=== PATIENT | female | born 1955 | race Caucasian/White ===

== ENCOUNTER 2020-06-22 13:19 | Outpatient (CLI) | payer MEDICARE, SELFPAY ==
[2020-06-22 14:03] LABS: Hematocrit 39.9 % (37.0-47.0); Hemoglobin 12.9 g/dL (12.0-15.0); Mean Corpuscular HGB Conc 32.3 g/dl (32-36); Mean Corpuscular Hemoglobin 29.5 pg (26-34); Mean Corpuscular Volume 91.3 fl (80-100); Mean Platelet Volume 10.9 fl (7.4-10.4); Platelet Count Result 216 k/mm3 (150-375); Red Blood Count 4.37 M/mm3 (4.2-5.4); Red Cell Distribution Width 12.5 % (11.5-14.5); White Blood Count 9.1 K/mm3 (4.5-10.0)
[2020-06-22 14:13] LABS: Albumin Level 4.3 g/dL (3.5-5.1); Creatinine Urine 114.2 mg/dL; Total Protein Urine Random 13 mg/dL
[2020-06-22 14:17] LABS: Anion Gap 13.3 mmol/L (7-16); Blood Urea Nitrogen 31 mg/dL (7-17); Calcium 9.3 mg/dL (8.4-10.2); Carbon Dioxide 29 mmol/L (22-30); Chloride 102 mmol/L (98-107); Estimated Glomerular Filt Rate 28; Glucose 122 mg/dL (65-105); Potassium 4.3 mmol/L (3.4-5.0); Sodium 140 mmol/L (137-145)
[2020-06-22 14:19] LABS: Hemoglobin A1C 5.4 % (<5.7)
[2020-06-22 15:10] LABS: Parathyroid Intact 86.2 pg/mL (7.5-53.5)
== END 2020-06-22 13:20 | disposition home or self-care (01) ==
PROVIDERS: PCP Internal Medicine; Visit Provider Internal Medicine
DX: N18.3 Chronic kidney disease, stage 3 (moderate) (principal); E88.9 Metabolic disorder, unspecified; E63.9 Nutritional deficiency, unspecified; R79.9 Abnormal finding of blood chemistry, unspecified
CPT/HCPCS: 36415; 80048; 82040; 82306; 82570; 83036; 83970; 84156; 85027

== ENCOUNTER 2020-11-28 13:27 | Outpatient (CLI) | payer MEDICARE, SELFPAY ==
[2020-11-28 14:18] LABS: Hematocrit 38.2 % (37.0-47.0); Hemoglobin 12.3 g/dL (12.0-15.0); Mean Corpuscular HGB Conc 32.2 g/dl (32-36); Mean Corpuscular Hemoglobin 30.2 pg (26-34); Mean Corpuscular Volume 93.9 fl (80-100); Mean Platelet Volume 10.5 fl (7.4-10.4); Platelet Count Result 189 k/mm3 (150-375); Red Blood Count 4.07 M/mm3 (4.2-5.4); Red Cell Distribution Width 12.6 % (11.5-14.5); White Blood Count 7.2 K/mm3 (4.5-10.0)
[2020-11-28 14:26] LABS: Creatinine Urine 44.2 mg/dL; Total Protein Urine Random 13 mg/dL; Ur Ttl Prot Creatinine Ratio 0.29 mg/mg (0-0.20)
[2020-11-28 14:27] LABS: Albumin Level 4.1 g/dL (3.5-5.1); Anion Gap 4 mmol/L (8-16); Blood Urea Nitrogen 24 mg/dL (7-17); Calcium 9.4 mg/dL (8.4-10.2); Carbon Dioxide 34 mmol/L (22-30); Chloride 101 mmol/L (98-107); Estimated Glomerular Filt Rate 38; Glucose 105 mg/dL (65-105); Phosphorus 3.7 mg/dL (2.5-4.5); Potassium 4.1 mmol/L (3.4-5.0); Sodium 139 mmol/L (137-145)
[2020-11-28 14:27] LABS: Sodium Urine Random 72 meq/L
[2020-11-28 15:51] LABS: Vitamin D 25 Hydroxy 61.1 ng/mL
== END 2020-11-28 13:28 | disposition home or self-care (01) ==
PROVIDERS: PCP Internal Medicine; Visit Provider Internal Medicine Nephrology
DX: N18.30 Chronic kidney disease, stage 3 unspecified (principal)
CPT/HCPCS: 36415; 80069; 82306; 82570; 83970; 84156; 84300; 85027; 85999

== ENCOUNTER 2021-08-26 12:33 | Outpatient (CLI) | payer MEDICARE, SELFPAY ==
--- NOTE | ~2021-08-26 | XR_ITS ---
EXAMINATION: XR ankle LT min 3V EXAM DATE: 08/26/2021 13:31 INDICATION: Initial encounter following injury, with pain of the left ankle, fell one week ago. TECHNIQUE: Left ankle frontal, lateral and oblique projections obtained and reviewed. There is no pr ior study for comparison. FINDINGS: There is acute transverse fracture through the left lateral malleolus, about 1.5 cm from it s tip. There is about 4 mm of distraction. Unsure whether or not this will require surgical fixation. There is overlying soft tissue swelling. IMPRESSION: Acute left lateral malleolar transverse fracture; recommend orthopedic consult. Reviewed, dictated and finalized at location A. IMPRESSION: Acute left lateral malleolar transverse fracture; recommend orthop edic consult.
--- NOTE | ~2021-08-26 | XR_ITS ---
EXAMINATION: XR ankle RT min 3V EXAM DATE: 08/26/2021 13:31 INDICATION: No known recent injury provided at this time. Pain of the ankles bilaterally. TECHNIQUE: Right ankle frontal, lateral and oblique projections obtained and reviewed. Correlation is made to contralateral ankle same date. FINDINGS: Small ossifications along the tips of the right malleoli, sequela from prior injuries. Some swelling over the lateral malleolus, and subtle lucency through the very tip of the malleolus, possi ble acute nondisplaced avulsion fracture. Some swelling overlying the lateral malleolus. IMPRESSION: 1. Possible acute nondisplaced lateral malleolar avulsion fracture. Reviewed, dictated and finalized at location A.
--- NOTE | ~2021-08-26 | XR_ITS ---
EXAMINATION: XR shoulder LT min 2V EXAM DATE: 08/26/2021 13:31 INDICATION: M25.512 - Pain in left shoulder, states injury 1.5 weeks ago. TECHNIQUE: The following left shoulder projections obtained: frontal projection with internal rotatio n, frontal projection with external rotation, Grashey, and axillary (4+ views). There is no prior st udy for comparison. FINDINGS: No evidence of left shoulder rotator cuff calcific tendinosis. There is moderate glenohum eral joint, mild acromioclavicular joint primary osteoarthritis. There are no acute fractures or disl ocations identified. There is no subcutaneous gas. The soft tissue is unremarkable. There are no radiopaque foreign bodies. IMPRESSION: 1. Left shoulder exam without acute osseous findings. 2. Osteoarthritis. Reviewed, dictated and finalized at location A.
[2021-08-26 13:18] LABS: Basophils Percent Auto 0.4 % (0.2-1.2); Eosinophils Absolute Auto 0.2 K/mm3 (0-0.3); Eosinophils Percent Auto 2.2 % (0-4.4); Hematocrit 38.3 % (37.0-47.0); Hemoglobin 12.7 g/dL (12.0-15.0); Immature Granulocyte Absolute 0.03 K/mm3 (0.00-0.031); Immature Granulocyte Percent A 0.3 % (0-0.5); Lymphocytes Absolute Auto 1.72 K/mm3 (0.9-3.2); Mean Corpuscular HGB Conc 33.2 g/dl (32-36); Mean Corpuscular Hemoglobin 30.8 pg (26-34); Mean Platelet Volume 10.8 fl (7.4-10.4); Monocytes Absolute Auto 0.8 K/mm3 (0.1-0.6); Monocytes Percent Auto 8.7 % (2.6-8.5); Neutrophils Absolute Auto 6.3 K/mm3 (1.3-6.7); Neutrophils Percent Auto 69.4 % (45.5-73.1); Platelet Count Result 237 k/mm3 (150-375); Red Blood Count 4.12 M/mm3 (4.2-5.4); Red Cell Distribution Width 12.8 % (11.5-14.5); White Blood Count 9.1 K/mm3 (4.5-10.0)
[2021-08-26 13:45] LABS: Alanine Aminotransferase 22 U/L (4-35); Albumin Level 4.6 g/dL (3.5-5.1); Alkaline Phosphatase 73 U/L (38-126); Anion Gap 11 mmol/L (8-16); Aspartate Amino Transferase 31 U/L (14-36); Blood Urea Nitrogen 33 mg/dL (7-17); Calcium 9.6 mg/dL (8.4-10.2); Carbon Dioxide 26 mmol/L (22-30); Chloride 105 mmol/L (98-107); Cholesterol 145 mg/dL (0-200); Estimated Glomerular Filt Rate 25; Glucose 113 mg/dL (65-110); HDL Direct 35 mg/dL; Potassium 4.4 mmol/L (3.4-5.0); Sodium 142 mmol/L (137-145); Triglycerides 123 mg/dL (<150)
[2021-08-26 13:47] LABS: Albumin Level 4.6 g/dL (3.5-5.1); Anion Gap 9 mmol/L (8-16); Blood Urea Nitrogen 34 mg/dL (7-17); Calcium 9.6 mg/dL (8.4-10.2); Carbon Dioxide 27 mmol/L (22-30); Chloride 105 mmol/L (98-107); Estimated Glomerular Filt Rate 26; Glucose 114 mg/dL (65-110); Magnesium 1.9 mg/dL (1.6-2.3); Phosphorus 3.4 mg/dL (2.5-4.5); Potassium 4.3 mmol/L (3.4-5.0); Sodium 141 mmol/L (137-145)
[2021-08-26 13:56] LABS: LDL Cholesterol Direct 80 mg/dL
[2021-08-26 13:58] LABS: Hemoglobin A1C 5.3 % (<5.7)
[2021-08-26 14:09] LABS: Creatinine Urine 226.7 mg/dL; Total Protein Urine Random 9 mg/dL; Ur Ttl Prot Creatinine Ratio 0.04 mg/mg (0-0.20)
[2021-08-26 14:15] LABS: MALB Creatinine Ratio 3.9 mg/g (0-30); Microalbumin Urine Random 8.9 mg/L (0-16.7)
[2021-08-26 14:51] LABS: Folic Acid > 20.0 ng/mL (2.76->20)
[2021-08-26 16:12] LABS: Free T4 Free Thyroxine 1.93 ng/mL (0.78-2.19)
== END 2021-08-26 12:34 | disposition home or self-care (01) ==
PROVIDERS: PCP Internal Medicine; Referring Provider Physician Assistant; Visit Provider Internal Medicine
DX: E11.9 Type 2 diabetes mellitus without complications (principal); R53.83 Other fatigue; E03.9 Hypothyroidism, unspecified; M25.579 Pain in unspecified ankle and joints of unspecified foot; M25.512 Pain in left shoulder; N18.32 Chronic kidney disease, stage 3b
CPT/HCPCS: 36415; 73030; 73610; 80053; 80061; 80069; 82043; 82570; 82607; 82746; 83036; 83735; 84156; 84439; 84443; 85025

== ENCOUNTER 2021-09-04 14:46 | Outpatient (CLI) | payer MEDICARE, SELFPAY | END 2021-09-04 14:47 | disposition home or self-care (01) | LOC: ANHLAB 14:53 | PROVIDERS: PCP Internal Medicine | DX: R19.4 Change in bowel habit (principal) | CPT/HCPCS: 87015; 87045; 87272; 87324; 87427 ==

== ENCOUNTER 2022-08-10 13:31 | Outpatient (CLI) | payer MEDICARE, SELFPAY ==
[2022-08-10 14:10] LABS: Hematocrit 40.5 % (37.0-47.0); Mean Corpuscular HGB Conc 32.1 g/dl (32-36); Mean Corpuscular Hemoglobin 30.2 pg (26-34); Mean Corpuscular Volume 94.2 fl (80-100); Mean Platelet Volume 10.6 fl (7.4-10.4); Platelet Count Result 198 k/mm3 (150-375); Red Cell Distribution Width 12.5 % (11.5-14.5); White Blood Count 8.4 K/mm3 (4.5-10.0)
[2022-08-10 14:18] LABS: Creatinine Urine 152.2 mg/dL
[2022-08-10 14:23] LABS: Total Protein Urine Random < 5 mg/dL
[2022-08-10 14:24] LABS: Albumin Level 4.4 g/dL (3.5-5.1); Anion Gap 13 mmol/L (8-16); Blood Urea Nitrogen 34 mg/dL (7-17); Calcium 9.6 mg/dL (8.4-10.2); Carbon Dioxide 28 mmol/L (22-30); Chloride 101 mmol/L (98-107); Estimated Glomerular Filt Rate 37; Glucose 98 mg/dL (65-110); Phosphorus 3.9 mg/dL (2.5-4.5); Potassium 4.4 mmol/L (3.4-5.0); Sodium 142 mmol/L (137-145)
[2022-08-10 14:24] LABS: Ur Ttl Prot Creatinine Ratio < 0.03 mg/mg (0-0.20)
[2022-08-10 14:34] LABS: Parathyroid Intact 35.9 pg/mL (7.5-53.5)
== END 2022-08-10 13:32 | disposition home or self-care (01) ==
PROVIDERS: PCP Internal Medicine; Visit Provider Internal Medicine Nephrology
DX: N18.32 Chronic kidney disease, stage 3b (principal)
CPT/HCPCS: 36415; 80069; 82570; 83970; 84156; 85027

== ENCOUNTER 2022-08-12 11:24 | Outpatient (CLI) | payer MEDICARE, SELFPAY ==
[2022-08-12 13:39] LABS: Total Volume 24 Hour Urine 4300 ml
[2022-08-12 13:51] LABS: Urea Nitrogen 24 Hour Urine 13.5 G/DAY (12-20)
== END 2022-08-12 11:25 | disposition home or self-care (01) ==
LOC: ANHLAB 11:25
PROVIDERS: PCP Internal Medicine; Visit Provider Internal Medicine Nephrology
DX: N18.32 Chronic kidney disease, stage 3b (principal)
CPT/HCPCS: 81050; 84540

== ENCOUNTER 2022-12-30 10:04 | Outpatient (CLI) | payer MEDICARE, SELFPAY ==
--- NOTE | 2022-12-30 11:00 | NEURO_ITS ---
Impression: Patient reports a history of numbness in digits I - III of the right hand. # Moderate right Carpal Tunnel Syndrome. # Normal needle/EMG exam. # Clinical correlation recommended. Motor Nerve Conduction Upper Extremities Median Nerve Conduction Velocity (m/sec) Terminal Latency (msec) Response Voltage(mV) Elbow-Wrist Wrist Elbow Wrist Right 50 5.9 2 2 Left Ulnar Nerve Conduction Velocity (m/sec) Terminal Latency (msec) Response Voltage(mV) Above Elbow Below Elbow Wrist Above Elbow Below Elbow Wrist Right 51 51 2.7 5 6 6 Left F-Wave Latency Median (ms) Ulnar (ms) Right 31.5 29.6 Left Sensory Nerve Conduction Upper Extremities Median Nerve Stimulation Terminal Latency (msec) Wrist/Digit Response Voltage (uV) Wrist Right 6.1/6.9 15/25 Left Ulnar Nerve Stimulation Terminal Latency (msec) Wrist/Digit Response Voltage (uV) Wrist Right 2.8 31 Left Radial Nerve Terminal Latency (msec) Response Voltage(mV) Right 1.9 29 Left Left Right Muscles Examined Fibrillation Fasciculation Scarcity Voltage Duration Left Right Left Right Left Right Left Right Left Right Deltoid Biceps X Brachioradialis Triceps X Pronator Teres X Ext Indicis X Ext Digitorum X Abd Poll Brev X 1st Dorsal Interosseus Paraspinals MTDD
== END 2022-12-30 10:05 | disposition home or self-care (01) ==
LOC: ANHNEURO 10:05
PROVIDERS: PCP Internal Medicine; Visit Provider Internal Medicine
DX: R20.0 Anesthesia of skin (principal); G56.01 Carpal tunnel syndrome, right upper limb
CPT/HCPCS: 95886; 95909

== ENCOUNTER 2023-03-01 10:39 | Outpatient (CLI) | payer MEDICARE, SELFPAY ==
[2023-03-01 11:27] LABS: Albumin Level 4.3 g/dL (3.5-5.1); Anion Gap 7 mmol/L (8-16); Blood Urea Nitrogen 26 mg/dL (7-17); Calcium 9.3 mg/dL (8.4-10.2); Carbon Dioxide 28 mmol/L (22-30); Chloride 105 mmol/L (98-107); Estimated Glomerular Filt Rate 45; Glucose 98 mg/dL (65-110); Phosphorus 3.9 mg/dL (2.5-4.5); Potassium 3.8 mmol/L (3.4-5.0); Sodium 140 mmol/L (137-145)
[2023-03-01 11:28] LABS: Hematocrit 37.2 % (37.0-47.0); Hemoglobin 12.2 g/dL (12.0-15.0); Mean Corpuscular HGB Conc 32.8 g/dl (32-36); Mean Corpuscular Volume 91.6 fl (80-100); Mean Platelet Volume 10.9 fl (7.4-10.4); Platelet Count Result 190 k/mm3 (150-375); Red Blood Count 4.06 M/mm3 (4.2-5.4); Red Cell Distribution Width 12.4 % (11.5-14.5); White Blood Count 7.8 K/mm3 (4.5-10.0)
[2023-03-01 11:31] LABS: Total Protein Urine Random 7 mg/dL; Ur Ttl Prot Creatinine Ratio 0.08 mg/mg (0-0.20)
[2023-03-01 11:38] LABS: Parathyroid Intact 69.2 pg/mL (7.5-53.5)
== END 2023-03-01 10:40 | disposition home or self-care (01) ==
PROVIDERS: PCP Internal Medicine; Visit Provider Internal Medicine Nephrology
DX: N18.32 Chronic kidney disease, stage 3b (principal)
CPT/HCPCS: 36415; 80069; 82570; 83970; 84156; 85027

== ENCOUNTER 2023-09-03 08:18 | Outpatient (CLI) | payer MEDICARE, SELFPAY ==
[2023-09-03 08:57] LABS: Hematocrit 39.7 % (37.0-47.0); Hemoglobin 12.7 g/dL (12.0-15.0); Mean Corpuscular Hemoglobin 30.2 pg (26-34); Mean Corpuscular Volume 94.3 fl (80-100); Mean Platelet Volume 10.6 fl (7.4-10.4); Platelet Count Result 178 k/mm3 (150-375); Red Blood Count 4.21 M/mm3 (4.2-5.4); Red Cell Distribution Width 12.5 % (11.5-14.5); White Blood Count 8.9 K/mm3 (4.5-10.0)
[2023-09-03 09:01] LABS: Albumin Level 4.1 g/dL (3.5-5.1); Anion Gap 7 mmol/L (8-16); Blood Urea Nitrogen 27 mg/dL (7-17); Calcium 9.1 mg/dL (8.4-10.2); Carbon Dioxide 27 mmol/L (22-30); Chloride 105 mmol/L (98-107); Estimated Glomerular Filt Rate 37; Glucose 98 mg/dL (65-110); Phosphorus 3.9 mg/dL (2.5-4.5); Potassium 3.8 mmol/L (3.4-5.0); Sodium 139 mmol/L (137-145)
[2023-09-03 09:35] LABS: Vitamin D 25 Hydroxy 70.7 ng/mL
[2023-09-03 09:38] LABS: Creatinine Urine 54.4 mg/dL; Total Protein Urine Random 12 mg/dL; Ur Ttl Prot Creatinine Ratio 0.22 mg/mg (0-0.20)
== END 2023-09-03 08:19 | disposition home or self-care (01) ==
PROVIDERS: PCP Internal Medicine; Visit Provider Internal Medicine Nephrology
DX: N18.32 Chronic kidney disease, stage 3b (principal)
CPT/HCPCS: 36415; 80069; 82306; 82570; 83970; 84156; 85027

== ENCOUNTER 2024-03-31 09:48 | Outpatient (CLI) | payer MEDICARE, SELFPAY ==
[2024-03-31 10:23] LABS: Creatinine Urine 162.2 mg/dL; Total Protein Urine Random 10 mg/dL; Ur Ttl Prot Creatinine Ratio 0.06 mg/mg (0-0.20)
[2024-03-31 10:29] LABS: Albumin Level 4.3 g/dL (3.5-5.1); Anion Gap 7 mmol/L (4-12); Blood Urea Nitrogen 28 mg/dL (7-17); Calcium 9.4 mg/dL (8.4-10.2); Carbon Dioxide 24 mmol/L (22-30); Chloride 108 mmol/L (98-107); Estimated Glomerular Filt Rate 34; Glucose 105 mg/dL (65-110); Phosphorus 3.7 mg/dL (2.5-4.5); Potassium 3.9 mmol/L (3.4-5.0); Sodium 139 mmol/L (137-145)
[2024-03-31 10:39] LABS: Hemoglobin 13.3 g/dL (12.0-15.0); Mean Corpuscular HGB Conc 32.4 g/dl (32-36); Mean Corpuscular Hemoglobin 30.2 pg (26-34); Mean Platelet Volume 10.7 fl (7.4-10.4); Platelet Count Result 208 k/mm3 (150-375); Red Blood Count 4.41 M/mm3 (4.2-5.4); Red Cell Distribution Width 12.7 % (11.5-14.5); White Blood Count 6.9 K/mm3 (4.5-10.0)
[2024-03-31 10:40] LABS: Parathyroid Intact 72.3 pg/mL (7.5-53.5)
== END 2024-03-31 09:49 | disposition home or self-care (01) ==
LOC: ANHLAB 09:51
PROVIDERS: PCP Internal Medicine; Visit Provider Internal Medicine Nephrology
DX: N18.32 Chronic kidney disease, stage 3b (principal)
CPT/HCPCS: 36415; 80069; 82570; 83970; 84156; 85027

== ENCOUNTER 2024-09-19 12:08 | Outpatient (CLI) | payer MEDICARE, SELFPAY ==
[2024-09-19 13:19] LABS: Hematocrit 42.4 % (37.0-47.0); Mean Corpuscular Hemoglobin 31.3 pg (26-34); Mean Corpuscular Volume 94.6 fl (80-100); Mean Platelet Volume 10.8 fl (7.4-10.4); Platelet Count Result 209 k/mm3 (150-375); Red Blood Count 4.48 M/mm3 (4.2-5.4); Red Cell Distribution Width 12.6 % (11.5-14.5); White Blood Count 7.2 K/mm3 (4.5-10.0)
[2024-09-19 13:49] LABS: Albumin Level 4.5 g/dL (3.5-5.1); Anion Gap 9 mmol/L (4-12); Blood Urea Nitrogen 33 mg/dL (7-17); Calcium 9.7 mg/dL (8.4-10.2); Carbon Dioxide 29 mmol/L (22-30); Chloride 102 mmol/L (98-107); Estimated Glomerular Filt Rate 32; Glucose 92 mg/dL (65-110); Phosphorus 3.7 mg/dL (2.5-4.5); Sodium 140 mmol/L (137-145)
[2024-09-19 13:59] LABS: Parathyroid Intact 42.3 pg/mL (14.5-75.2)
[2024-09-19 14:41] LABS: Creatinine Urine 111.5 mg/dL; Total Protein Urine Random 9 mg/dL; Ur Ttl Prot Creatinine Ratio 0.08 mg/mg (0-0.20)
[2024-09-19 15:47] LABS: Vitamin D 25 Hydroxy 63.7 ng/mL
== END 2024-09-19 12:09 | disposition home or self-care (01) ==
LOC: ANHLAB 12:10
PROVIDERS: PCP Internal Medicine; Visit Provider Internal Medicine Nephrology
DX: E21.1 Secondary hyperparathyroidism, not elsewhere classified (principal); I12.9 Hypertensive chronic kidney disease with stage 1 through stage 4 chronic kidney disease, or unspecified chronic kidney disease; N18.32 Chronic kidney disease, stage 3b
CPT/HCPCS: 36415; 80069; 82306; 82570; 83970; 84156; 85027

== ENCOUNTER 2025-04-05 08:54 | Outpatient (CLI) | payer MEDICARE, SELFPAY ==
--- OUTSIDE RECORDS SUMMARY | 2025-04-05 09:05 | XMS_ITS | Encounter Summary ---
Author Organization [facility] Address [address] [place] [address] Phone Care Team Providers Care Pricing Analyst Name Role Phone Cr Franklin MD Primary Care Provider [phone] Toñito Frank MD Unavailable [phone] Encounter Details Date Type Department Care Team (Latest Contact Info) Description 08/26/2021 Orders Only [facility] WGT Scanning, Provider Social History Tobacco Use Types Packs/Day Years Used Date Smoking Tobacco: Never Smokeless Tobacco: Never Alcohol Use Standard Drinks/Week Comments Yes 0 (1 standard drink = 0.6 oz pur e alcohol) rare Comments No Sex and Gender Information Value Date Recorded Sex Assigned at Not on file 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 Gender Identity Not on file Sexual Orientation Not on file documented as of this encounter Plan of Treatment Not on file documented as of this encounter Procedures Procedure Name Priority Date/Time Associated Diagnosis Comments SCAN - LABS 08/26/2021 documented in this encounter Results * SCAN - LABS (08/26/2021) us Provider Scanning Final Result documented in this encounter Visit Diagnoses Not on filedocumented in this encounter Care Teams Pricing Analyst Relationship Specialty Start Date End Date Cr Franklin MD [address] [facility] [address] [place], [place] [id number] PCP - General 03/30/17 Toñito Frank MD [address] [place] [address] Referring Physician Transplant Hepatology 06/16/20 documented as of this encounter
--- OUTSIDE RECORDS SUMMARY | 2025-04-05 09:05 | XMS_ITS | Encounter Summary ---
Author Organization [facility] Address [address] [place] [address] Phone Care Team Providers Care Steel Estimator Name Role Phone Cr Franklin MD Primary Care Provider [phone] Toñito Frank MD Unavailable [phone] Encounter Details Date Type Department Care Team (Latest Contact Info) Description 06/22/2020 Orders Only [facility] WGT Scanning, Provider Social History Tobacco Use Types Packs/Day Years Used Date Smoking Tobacco: Never Smokeless Tobacco: Never Alcohol Use Standard Drinks/Week Comments Yes 0 (1 standard drink = 0.6 oz pur e alcohol) rare Comments No Sex and Gender Information Value Date Recorded Sex Assigned at Not on file 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 Gender Identity Not on file Sexual Orientation Not on file documented as of this encounter Plan of Treatment Not on file documented as of this encounter Procedures Procedure Name Priority Date/Time Associated Diagnosis Comments SCAN - LABS 06/22/2020 documented in this encounter Results * SCAN - LABS (06/22/2020) us Provider Scanning Final Result documented in this encounter Visit Diagnoses Not on filedocumented in this encounter Care Teams Steel Estimator Relationship Specialty Start Date End Date Cr Franklin MD [address] [place], [place] [id number] PCP - General 03/30/17 Toñito Frank MD [address] [place] [address] Referring Physician Transplant Hepatology 06/16/20 documented as of this encounter
--- OUTSIDE RECORDS SUMMARY | 2025-04-05 09:05 | XMS_ITS | Clinical Summary ---
Author Organization [facility] Address [address] [place] [address] Phone Care Team Providers Care Import Export Coordinator Name Role Phone Cr Franklin DO Primary Care Provider [phone] Allergies Active Allergy Reactions Criticality Noted Date Comments Atorvastatin Medium 05/09/2019 Other reaction(s): Muscle pain Penicillins Hives Medium Sulfa Antibiotics Medications metoprolol tartrate (LOPRESSOR) 25 MG tablet 1 bid 0 11/29/2018 Active levothyroxine (SYNTHROID, LEVOTHROID) 150 MCG tablet 1 daily 0 11/29/2018 Active hyoscyamine (ANASPAZ,LEVSIN ) 0.125 MG tablet 1 3-4per day prn 0 11/29/2018 Active aspirin (ASPIR) 81 MG EC tablet 1 daily 0 11/29/2018 Act giovanny magnesium oxide (MAG-OX) 400 mg tablet 1 bid 0 11/29/2018 Active Fish Oil-Cholecalcif rossana (FISH OIL + D3) 8643-0139 MG-UNIT capsule 1 daily 0 11/29/2018 Act giovanny Turmeric Curcumin 500 MG capsule 1 daily 0 11/29/2018 Active pravastatin (PRAVACHOL) 20 MG tablet 1 daily 0 11/29/2018 Active buPROPion SR (WELLBUTRIN SR) 150 MG 12 hr tablet 1 bid 0 11/29/2018 Active Coenzyme Q10 (COQ10) 200 MG capsule 1 daily 0 11/29/2018 Active Multiple Vitamins-Minera ls (MULTIVITAMIN ADULT) tablet 1 daily 0 11/29/2018 Activ e estradiol (ESTRACE) 0.5 MG tablet 1 daily 0 11/29/2018 Active montelukast (SINGULAIR) 10 MG tablet 1 daily 0 11/29/2018 Active fluticasone (FLONASE ALLERGY RELIEF) 50 MCG/ACT nasal spray 1 prn 0 11/29/2018 Active Cetirizine HCl (ZyrTEC ALLERGY) 10 MG capsule 1 daily 0 11/29/2018 Active biotin (BIOTIN 5000) 5 MG capsule capsule 1 daily 0 11/29/2018 Act giovanny alpha tocopherol (VTIAMIN E BLEND) 400 units capsule 1 daily 0 11/29/2018 Activ e cholecalciferol (VITAMIN D-3) 2000 units capsule 1 daily 0 11/29/2018 Active Misc Natural Products (GLUCOSAMINE CHOND MSM FORMULA) tablet 1 bid 0 11/29/2018 Act giovanny polycarbophil (FIBER-CAPS) 625 MG tablet USE DIRECTED. 01/03/2009 Active irbesartan-hydr oCHLOROthiazide (AVALIDE) 150-12.5 MG per tablet Take 1 tablet by mouth 1 (one) time each day 10/17/2019 Active metFORMIN (GLUCOPHAGE) 500 MG tablet Take 2 tablets by mouth 01/31/2018 Active Multiple Vitamin (MULTI-VITAMIN) tablet Active naltrexone (DEPADE) 50 MG tablet TAKE 1 TABLET (50 MG TOTAL) BY MOUTH DAILY TAKE WITH FOOD. 09/29/2020 Active pantoprazole (PROTONIX) 20 MG EC tablet Take 20 mg by mouth 1 (one) time each day 11/06/2020 Active OneTouch Verio test strip DIRECTED TEST DAILY 06/13/2021 Active Black Pepper-Turmeric (Turmeric Complex/Black Pepper) 3-500 MG capsule Take by mouth daily 11/29/2018 Active Trulicity 1.5 MG/0.5ML solution pen-injector INJECT 0.5ML UNDER THE SKIN ONE TIME PER WEEK 07/28/2022 Active Active Problems Problem Noted Date Diagnosed Date Pure hypercholesterolemia 12/14/2019 Type 2 diabetes mellitus without complication Stage 3b chronic kidney disease 08/29/2018 Nonalcoholic steatohepatitis (VEGA) 08/29/2018 Essential (primary) hypertension 08/29/2018 Osteoarthritis 08/29/2018 Polyp of colon 08/29/2018 Hypothyroidism 08/29/2018 Gastro-esophageal reflux disease without esophag itis 08/29/2018 Hyperlipidemia 08/29/2018 Immunizations Immunization Administration Dates Next Due Influenza Split 08/18/2018 Influenza Split High Dose Pr eservative Free IM 08/12/2015 Influenza TIV (IM) 08/29/2021,09/04/2020, 009 Influenza Trivalent Adjuvanted 08/18/2018 Influenza, Injectable, Quadr ivalent, Preservative Free 08/12/2015 Pneumococcal Polysaccharide 09/28/2019, 8 Tdap 08/12/2015 Zoster 02/20/2015 Family History Medical History Relation Comments Diabetes mellitus Father Diabetes mellitus Mother Kidney disease Neg Hx Relation Status Comments Father Mother Social History Tobacco Use Types Packs/Day Years Used Date Smoking Tobacco: Never Smokeless Tobacco: Never Alcohol Use Standard Drinks/Week Comments Yes 0 (1 standard drink = 0.6 oz pur e alcohol) Alcoholic Drinks/day: rare Comments Unknown Sex and Gender Information Value Date Recorded Sex Assigned at Not on file Legal Sex Female 7:22 AM [facility] Gender Identity Not on file Sexual Orientation Not on file Last Filed Vital Signs Vital Sign Reading Time Taken Comments Blood Pressure 136/70 08/17/2022 1:04 PM CDT Pulse 72 08/17/2022 1:04 PM CDT Temperature 34.5 C (94.1 F) 08/17/2022 1:04 PM CDT Respiratory Rate - - Oxygen Saturation - - Inhaled Oxygen Concentration - - Weight 120 kg (264 lb) 08/17/2022 1:04 PM CDT Height 177.8 cm (5' 10 ) 08/17/2022 1:04 PM CDT Body Mass Index 37.88 08/17/2022 1:04 PM CDT Plan of Treatment Health Maintenance Due Date Last Done Comments Diabetic Foot Exam 1963 Ophthalmology Exam 1965 Pneumococcal PPSV23/PCV13 65 + Years / High and Highest Risk (3 of 4 - PCV) 09/28/2020 09/28/2019, 08/18/2018 Influenza Vaccine (Season Ended) 2025 08/29/2021, 09/04/2020, 08/18/2018, Additional history exists Insurance [employer] Care Teams Import Export Coordinator Relationship Specialty Start Date End Date Cr Franklin DO [address] [facility] [address] [place] [id number] PCP - General Internal Medicine 05/17/19
--- OUTSIDE RECORDS SUMMARY | 2025-04-05 09:05 | XMS_ITS | Encounter Summary ---
Author Organization [facility] Address [address] [place] [address] Phone Care Team Providers Care Pipefitter Helper Name Role Phone Cr Fraknlin MD Primary Care Provider [phone] Toñito Frank MD Unavailable [phone] Encounter Details Date Type Department Care Team (Latest Contact Info) Description 04/22/2023 Orders Only [facility] WGT Scanning, Provider Social History Tobacco Use Types Packs/Day Years Used Date Smoking Tobacco: Never Smokeless Tobacco: Never Alcohol Use Standard Drinks/Week Comments Yes 0 (1 standard drink = 0.6 oz pur e alcohol) rare AUDIT-C Answer Date Recorded Q1: How often do you have a drink containing alc ohol? 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 Gender Identity Not on file Sexual Orientation Not on file documented as of this encounter Plan of Treatment Not on file documented as of this encounter Procedures Procedure Name Priority Date/Time Associated Diagnosis Comments SCAN - LABS 04/22/2023 documented in this encounter Results * SCAN - LABS (04/22/2023) us Provider Scanning Final Result documented in this encounter Visit Diagnoses Not on filedocumented in this encounter Care Teams Pipefitter Helper Relationship Specialty Start Date End Date Cr Franklin MD [address] [place] [address] PCP - General 03/30/17 Toñito Frank MD [address] [place] [address] Referring Physician Transplant Hepatology 06/16/20 documented as of this encounter
--- OUTSIDE RECORDS SUMMARY | 2025-04-05 09:05 | XMS_ITS | Clinical Summary ---
Author Organization [facility] Address [address] [place] [address] Care Team Providers Care Natural Gas Inspector Name Role Phone Unavailable Primary Care Provider Unavailabl e Social History Tobacco Use Types Packs/Day Years Used Date Smoking Tobacco: Never Assessed Comments Unknown Sex and Gender Information Value Date Recorded Sex Assigned at Not on file Legal Sex Female 8:32 PM CDT Gender Identity Not on file Sexual Orientation Not on file Plan of Treatment Health Maintenance Due Date Last Done Comments Colorectal Cancer Screening Colonoscopy (10 Years) 1953 Hepatitis C 1971 DTaP, Tdap and Td Vaccines ( 1 - Tdap) 1972 Mammogram Screening 1993 Pneumococcal Vaccine: 50+ Ye ars (1 of 1 - PCV) 2003 Zoster Vaccines (1 of 2) 2003 Dexa Scan (General) 2018 COVID-19 Vaccine ( - 2023-2 5 season) 2024 RSV Immunization or 60+ Years (1 - 1-dose 75+ series) 2028 Meningococcal B Vaccine Aged Out No l onger eligible based on patient's age to complete this topic Meningococcal Vaccine Aged Out No mook cassandra eligible based on patient's age to complete this topic RSV Immunizations Under 20 Months Aged Out No longer eligible based on patient's age to complete this topic
--- OUTSIDE RECORDS SUMMARY | 2025-04-05 09:05 | XMS_ITS | Clinical Summary ---
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 Trimethoprim Unknown Low Unknown to Pt. Medications polycarbophil (FIBERCON) 625 mg tablet 009 Active magnesium oxide (MAG-OX) 400 mg (241.3 mg elemental) tabletIndications :hypomagnesemia Acti ve metoprolol (LOPRESSOR) 25 mg tablet 2 (two) times a day. Active cetirizine (ZyrTEC) 10 mg tablet as needed 009 Active fluticasone (FLONASE) 50 mcg/actuation nasal spray as needed 018 Active ONETOUCH VERIO strip 018 Active levothyroxine (SYNTHROID, LEVOTHROID) 150 mcg tablet Take 1 tablet (150 mcg total) by mouth daily 3 018 Active vnsweehkoorj-Ph-y scooter-minerals tablet Active pravastatin (PRAVACHOL) 20 mg tablet Take 1 tablet (20 mg total) by mouth daily 020 Active LORazepam (ATIVAN) 0.5 mg tablet Take 1 tablet (0.5 mg total) by mouth as needed Active omega 9-jpn-zln-fish oil (Fish OiL) 100-160-1,000 mg capsule Take by mouth daily Active turmeric/turmeric ext/pepr ext (turmeric-turmeri c ext-pepper) 500-3 mg capsule Take by mouth daily Active PHENobarbital-hyo scyaamine-atropin e-scopoloamine () 16.2-0.1037 -0.0194 mg per tabletIndications :Irritable Bowel Syndrome Take 1 tablet by mouth 4 (four) times a day as needed for heartburn 30 tablet Active Farxiga 10 mg tablet Take 1 tablet (10 mg total) by mouth daily Active hydroCHLOROthiazi de (HYDRODIURIL) 25 mg tablet Take 2 tablets (50 mg total) by mouth daily Active irbesartan (AVAPRO) 300 mg tablet Take 1 tablet (300 mg total) by mouth daily Active Lumigan 0.01 % ophthalmic drops Active pantoprazole DR (PROTONIX) 40 mg EC tablet Take 1 tablet (40 mg total) by mouth daily 30 tablet Active semaglutide (Ozempic) 2 mg/dose (8 mg/3 mL) pen injector injectionIndicati ons:Type 2 diabetes mellitus without complication, without long-term current use of insulin (HCC),Essential (primary) hypertension,Enco unter for medication monitoring,Hyperl ipidemia, unspecified hyperlipidemia type INJECT 2 MG SUBCUTANEOUSLY EVERY 7 DAYS 9 mL 1 Active gabapentin (NEURONTIN) 100 mg capsuleIndication s:Restless Legs Syndrome Take 1 cap PO q evening (1 hr before symptom onset), q3-5 days inc by 1 cap as needed/tolerated up to 6 caps q evening 180 capsule Active Additional Information Patient not taking.Reported on 03/15/2025 buPROPion SR (WELLBUTRIN SR) 150 mg 12 hr tablet TAKE 1 TABLET BY MOUTH TWICE A DAY 180 tablet Active naltrexone (DEPADE) 50 mg tablet TAKE 1 TABLET BY MOUTH EVERY DAY 90 tablet 1 03/10/2 025 Active hyoscyamine (LEVSIN) 0.125 mg SL tablet Take 1 tablet (0.125 mg total) by mouth every 4 (four) hours as needed for cramping for cramping 300 tablet 5 025 Active latanoprost (XALATAN) 0.005 % ophthalmic solution 1 drop nightly 023 2024 Discontinued Active Problems Problem Noted Date Diagnosed Date Esophageal dysphagia 09/19/2024 Encounter for colonoscopy due to history of colo dread polyp 06/14/2020 Overview (06/14/2020): Added automatically from request for surgery [id number] Pure hypercholesterolemia 12/14/2019 Encounter for colonoscopy du e to history of adenomatous colonic polyps 05/18/2019 Overview (05/18/2019): Added automatically from request for surgery [id number] Closed fracture of lower end of left radius with routine healing 09/28/2018 Overview (09/28/2018): Added automatically from request for surgery [id number] Essential (primary) hypertension 08/29/2018 Assessment & Plan (07/07/2023 8:55 AM CDT): BP elevated today. F/U PCP. Appropriately on PAWEL-I/ARB. Nonalcoholic steatohepatitis (VEGA) 08/29/2018 Osteoarthritis 08/29/2018 Polyp of colon 08/29/2018 Stage 3b chronic kidney disease 08/29/2018 Elevated serum creatinine 08/24/2018 Assessment & Plan (08/24/2018 9:36 AM CDT): Recheck BMP, UA Nonalcoholic fatty liver dis ease without nonalcoholic steatohepatitis (VEGA) 08/18/2018 Urinary tract infection without hematuria 2017 Weight loss counseling, encounter for 06/17/2018 Assessment & Plan (10/03/2023 9:19 PM CONSULTANT): Reviewed calorie restriction based on BMR as previously detailed. Reviewed recommendation/goal of >/= 150 minutes/week moderate-intensity aerobic exercise. Asked to keep detailed food diary for at least 1 week and bring to next visit and/or continue tracking on phone. Assessment & Plan (07/07/2023 8:52 AM CDT): Reviewed calorie restriction based on BMR as previously detailed. Reviewed recommendation/goal of >/= 150 minutes/week moderate-intensity aerobic exercise. Asked to keep detailed food diary for at least 1 week and bring to next visit and/or continue tracking on phone. Assessment & Plan (02/06/2023 10:10 PM CONSULTANT): Reviewed calorie restriction based on BMR as previously detailed. Reviewed recommendation/goal of >/= 150 minutes/week moderate-intensity aerobic exercise. Asked to keep detailed food diary for at least 1 week and bring to next visit and/or continue tracking on phone. Assessment & Plan (08/12/2022 1:13 PM CDT): Reviewed calorie restriction based on BMR as previously detailed. Reviewed recommendation/goal of >/= 150 minutes/week moderate-intensity aerobic exercise. Asked to keep detailed food diary for at least 1 week and bring to next visit and/or continue tracking on phone. Assessment & Plan (12/01/2021 4:22 PM CONSULTANT): Reviewed calorie restriction based on BMR as previously detailed. Reviewed recommendation/goal of >/= 150 minutes/week moderate-intensity aerobic exercise. Asked to keep detailed food diary for at least 1 week and bring to next visit and/or continue tracking on phone. Assessment & Plan (07/29/2021 10:31 AM CDT): Reviewed calorie restriction based on BMR as previously detailed. Reviewed recommendation/goal of >/= 150 minutes/week moderate-intensity aerobic exercise. Asked to keep detailed food diary for at least 1 week and bring to next visit and/or continue tracking on phone. Assessment & Plan (03/04/2021 3:20 PM CDT): Reviewed calorie restriction based on BMR as previously detailed. Reviewed recommendation/goal of >/= 150 minutes/week moderate-intensity aerobic exercise. Recommend she start tracking her food again to help refocus. Assessment & Plan (10/06/2020 2:58 PM CONSULTANT): Reviewed calorie restriction based on BMR as previously detailed. Reviewed recommendation/goal of >/= 150 minutes/week moderate-intensity aerobic exercise. Asked to keep detailed food diary for at least 1 week and bring to next visit and/or continue tracking on phone. Assessment & Plan (02/02/2020 8:30 PM CONSULTANT): Reviewed calorie restriction based on BMR as previously detailed. Reviewed recommendation/goal of >/= 150 minutes/week moderate-intensity aerobic exercise. Assessment & Plan (11/04/2019 10:55 AM CONSULTANT): Reviewed calorie restriction based on BMR as previously detailed. Reviewed recommendation/goal of >/= 150 minutes/week moderate-intensity aerobic exercise. Assessment & Plan (06/21/2019 11:03 PM CDT): Reviewed calorie restriction based on BMR as previously detailed. Reviewed recommendation/goal of >/= 150 minutes/week moderate-intensity aerobic exercise. Assessment & Plan (03/18/2019 3:15 PM CDT): Reviewed calorie restriction based on BMR as previously detailed. Reviewed recommendation/goal of >/= 150 minutes/week moderate-intensity aerobic exercise. Assessment & Plan (12/01/2018 1:18 PM CONSULTANT): Reviewed calorie restriction based on BMR as previously detailed. Reviewed recommendation/goal of >/= 150 minutes/week moderate-intensity aerobic exercise. Assessment & Plan (08/24/2018 9:33 AM CDT): Reviewed calorie restriction based on BMR as previously detailed. Reviewed recommendation/goal of >/= 150 minutes/week moderate-intensity aerobic exercise. Asked to keep detailed food diary for at least 1 week and bring to next visit. Assessment & Plan (06/17/2018 8:08 PM CDT): Reviewed calorie restriction based on BMR as previously detailed. Reviewed recommendation/goal of >/= 150 minutes/week moderate-intensity aerobic exercise. Asked to keep detailed food diary for at least 1 week and bring to next visit. Metabolic and nutritional disorder 06/17/2018 Assessment & Plan (10/03/2023 9:23 PM CONSULTANT): Reviewed study labs -- scanned. Assessment & Plan (07/29/2021 10:34 AM CDT): She will forward lab results. Assessment & Plan (11/04/2019 10:56 AM CONSULTANT): Continue low-carb (<150 g/day), low-glycemic diet. Continue metformin. Assessment & Plan (06/21/2019 11:06 PM CDT): Reviewed recent labs. Continue low-carb (<150 g/day), low-glycemic diet. Continue metformin. Assessment & Plan (03/18/2019 3:16 PM CDT): Continue low-carb (<150 g/day), low-glycemic diet. Reviewed importance of adequate protein intake of 1-1.2 g/kg IBW/day. Reviewed recent labs from VEGA study -- scanned. Assessment & Plan (12/01/2018 1:21 PM CONSULTANT): Continue low-carb (<150 g/day), low-glycemic diet. Continue metformin -- discussed that I would have reduced to 500 mg BID if she had not already reduced; consider d/c if creatinine rises further. She will forward recent labs. Assessment & Plan (08/24/2018 9:34 AM CDT): Continue low-carb (<150 g/day), low-glycemic diet. Continue metformin. Reviewed recent labs. Assessment & Plan (06/17/2018 8:09 PM CDT): Continue low-carb (<150 g/day), low-glycemic diet. Continue metformin. Reviewed labs from liver study. Class 3 severe obesity due t o excess calories with serious comorbidity and body mass index (BMI) of 40.0 to 44.9 in adult 06/17/2018 Assessment & Plan (10/03/2023 9:22 PM CONSULTANT): Obesity is improving. Plan: Diet interventions: as noted. Regular aerobic exercise program discussed. Medication as prescribed. Follow up in 3 months Assessment & Plan (07/07/2023 8:54 AM CDT): Obesity is improving.. Plan: Diet interventions: as noted.., Regular aerobic exercise program discussed., and Medication as prescribed. Follow up in [] 1 month; [] 2 months; [x] 3 months; [] 6 months; [] Other: Assessment & Plan (02/06/2023 10:16 PM CONSULTANT): Obesity is worse recently, but overall remains improved.. Plan: Diet interventions: as noted.., Regular aerobic exercise program discussed. and Medication as prescribed. Assessment & Plan (08/12/2022 1:22 PM CDT): Obesity is improving. Plan: Diet interventions: as noted.., Regular aerobic exercise program discussed. and medications as prescribed. Assessment & Plan (12/01/2021 4:27 PM CONSULTANT): Obesity is improving with treatment. Diet interventions: as noted. Regular aerobic exercise program discussed. Pharmacotherapy as ordered. Assessment & Plan (07/29/2021 10:33 AM CDT): Obesity is improving with treatment. Diet interventions: as noted. Regular aerobic exercise program discussed. Pharmacotherapy as ordered. Assessment & Plan (04/19/2021 11:47 AM CDT): Obesity is worsening. Diet interventions: as noted. Regular aerobic exercise program discussed. Pharmacotherapy as ordered. Assessment & Plan (10/06/2020 3:02 PM CONSULTANT): Obesity is worsening. Recommended counseling. Diet interventions: as noted. Regular aerobic exercise program discussed. Pharmacotherapy as ordered. Discussed options and will add naltrexone to the bupropion she is already taking. Discussed risks, benefits, alternatives, potential side effects. Assessment & Plan (02/02/2020 8:39 PM CONSULTANT): Obesity is improving with treatment. Behavioral treatment: have recommended counsling. Diet interventions: as noted. Regular aerobic exercise program discussed. Pharmacotherapy as ordered. Assessment & Plan (11/04/2019 10:57 AM CONSULTANT): Obesity is improving with treatment. Diet interventions: as noted. Regular aerobic exercise program discussed. Pharmacotherapy as ordered. Assessment & Plan (06/21/2019 11:14 PM CDT): Obesity is improving with treatment. Diet interventions: as noted. Regular aerobic exercise program discussed. Pharmacotherapy as ordered. Assessment & Plan (03/18/2019 3:17 PM CDT): Obesity is improving with treatment. Diet interventions: as noted. Regular aerobic exercise program discussed. Pharmacotherapy as ordered. Assessment & Plan (12/01/2018 1:25 PM CONSULTANT): Obesity is improving with treatment. Diet interventions: as noted. Regular aerobic exercise program discussed. Pharmacotherapy as ordered. Assessment & Plan (08/24/2018 9:35 AM CDT): Obesity is improving with treatment. Diet interventions: as noted. Regular aerobic exercise program discussed. Pharmacotherapy as ordered. Consider addition of naltrexone. Assessment & Plan (06/17/2018 8:12 PM CDT): Obesity is improving with treatment. Dietary guidelines as noted. General weight loss/lifestyle modification strategies discussed (elicit support from others; identify saboteurs; non-food rewards, etc). Regular aerobic exercise program discussed. Pharmacotherapy as ordered. Work on getting back into regular exercise. Commended on weight loss to date and discussed anticipated health benefits/risk reduction with this degree of loss. Encounter for medication monitoring 06/17/2018 Type 2 diabetes mellitus without complication Assessment & Plan (10/03/2023 9:19 PM CONSULTANT): Reviewed most recent labs available. Continue low-carb (<150 g/day), low- glycemic diet. Continue semaglutide. Assessment & Plan (07/07/2023 8:53 AM CDT): Reviewed most recent labs available. Continue low-carb (<150 g/day), low- glycemic diet. Continue semaglutide -- 1 mg weekly. Assessment & Plan (02/06/2023 10:21 PM CONSULTANT): Reviewed most recent labs available. Continue low-carb (<150 g/day), low- glycemic diet. Will see if semaglutide is covered. Assessment & Plan (08/12/2022 1:13 PM CDT): She will forward recent labs. Continue current regimen. Assessment & Plan (12/01/2021 4:25 PM CONSULTANT): Continue low-carb (<150 g/day), low-glycemic diet.Continue Trulicity. Reviewed interim labs. Assessment & Plan (07/29/2021 10:32 AM CDT): Reviewed interim labs. Continue low-carb (<150 g/day), low-glycemic diet. Discussed options and will add GLP-1 analog. Discussed risks, benefits, alternatives, potential side effects. No personal or family history of MTC or MEN2. Reviewed dosing/titration; reviewed proper administration using demo pen; reviewed appropriate storage. Referred to websites for additional instructions/info/video. Start dulaglutide. Continue to monitor blood sugars. Assessment & Plan (04/19/2021 11:46 AM CDT): Discussed replacing glimepiride with GLP-1 RA pending review of labs. She will forward recent study labs. Assessment & Plan (10/06/2020 2:59 PM CONSULTANT): She will forward recent labs. Continue low-carb (<150 g/day), low-glycemic diet. Assessment & Plan (02/02/2020 8:36 PM CONSULTANT): Check A1c. Irritable bowel syndrome 04/14/2014 Overview (03/04/2017): IRRITABLE BOWEL SYNDROME Hypothyroidism 04/14/2014 Overview (01/21/2022): HYPOTHYROIDISM NOS Assessment & Plan (06/25/2024 1:17 PM CDT): Last TSH in good range. Hyperlipidemia 04/14/2014 Overview (01/21/2022): HYPERLIPIDEMIA NEC/NOS Gastro-esophageal reflux disease without esophag itis 04/14/2014 Overview (01/21/2022): ESOPHAGEAL REFLUX Atopic rhinitis 04/14/2014 Overview (03/05/2017): ALLERGIC RHINITIS NOS Sleep apnea Overview (12/12/2024): Severe AKANKSHA -- PSG 11/13/2021 (wt 272) with severe AKANKSHA (3% AHI 57.4, 4% AHI 56.5) with O2 pietro 50% Assessment & Plan (12/12/2024 1:29 PM CONSULTANT): Discussed recent approval of Zepbound for AKANKSHA and that this may be an option if she starts to struggle again with appetite or if weight increases. Encounters Date Type Department Care Team Description 03/20/2025 Telephone [facility] [address] [place] [address] [place] [address] Marjorie Hess 03/19/2025 Documentation [facility] [address] [place] [address] [place] [address] Bakari Juarez, JARRELL 03/18/2025 Results Follow-Up [facility] [address] [place] [address] [place] [address] Toñito Frank MD 03/15/2025 9:20 AM CDT Lab [facility] [address] [place] [address] Nonalcoholic fatty liver disease without nonalcoholic steatohepatitis (VEGA) 03/15/2025 8:20 AM CDT Office Visit [facility] [address] [facility] [address] [place] [address] Toñito Frank MD Nonalcoholic fatty liver disease without nonalcoholic steatohepatitis (VEGA) (Primary Dx) 02/28/2025 Documentation [facility]enter[facility] [address] [facility] [address] [place] [address] [place] [address] Ally Arnold LPN from Last 3 Months Immunizations Immunization Administration Dates Next Due Influenza, Trivalent, IM (MDV) 09/02/2009 Pfizer Sars-Cov-2 Bivalent Vaccination (12+ YRS) 09/10/2022 Surgical History Surgery Date Site/Laterality Comments BIOPSY LIVER 08/05/2016 N/A LAPAROSCOPIC HYSTERECTOMY COLONOSCOPY W/ POLYPECTOMY US GUIDED BIOPSY LIVER 06/02/2018 N/A RHINOPLASTY x 3 LIPOMA RESECTION Left shoulder WISDOM TOOTH EXTRACTION LAPAROSCOPY fallopian cyst removed ORIF WRIST FRACTURE 11/29/2017 - 11/28/2018 Left w/carpal tunnel release US GUIDED BIOPSY LIVER 09/11/2020 N/A POLYPECTOMY UPPER GASTROINTESTINAL ENDOSCOPY Medical History Medical History Date Comments Hyperlipidemia Hypertension Irritable bowel syndrome GERD (gastroesophageal reflux disease) Type 2 diabetes mellitus (HCC) 2014 Hypothyroidism Arthritis Sinusitis Sleep apnea Colon polyp Chronic constipation Chronic diarrhea Liver disease fatty liver Family History Medical History Relation Name Comments Colon polyps Brother 1 Hypertension Brother 1 Family history of hypertension - (Added by TW Conv) Sleep apnea Brother 1 Diabetes Brother 2 Family history of diabetes mellitus - (Added by TW Conv) Sleep apnea Brother 2 Diabetes Father Family history of diabetes mellitus - (Added by TW Conv) Hypertension Father Family history of hypertension - (Added by TW Conv) Colon polyps Mother Diabetes Mother Family history of diabetes mellitus - (Added by TW Conv) Hypertension Mother Family history of hypertension - (Added by TW Conv) Hypertension Sister 1 Family history of hypertension - (Added by TW Conv) Diabetes Sister 2 Family history of diabetes mellitus - (Added by TW Conv) Relation Name Status Comments Brother 1 Brother 2 Father Mother Sister 1 Sister 2 Social History Tobacco Use Types Packs/Day Years Used Date Smoking Tobacco: Never Smokeless Tobacco: Never Tobacco Cessation:Counseling Given: Not Answered Alcohol Use Standard Drinks/Week Comments Yes 0 (1 standard drink = 0.6 oz pur e alcohol) rare AUDIT-C Answer Date Recorded Q1: How often do you have a drink containing alc ohol? Monthly or less 03/15/2025 Q2: How many drinks containi ng alcohol do you have on a typical day when you are drinking? 1 or 2 03/15/2025 Q3: How often do you have si x or more drinks on one occasion? Never 03/15/2025 Personal Safety Answer Date Recorded Have you ever been in or are you currently in a harmful physical or emotional relationship or is someone making you feel afraid or unsafe? Denies 10/09/2024 Comments No Sex and Gender Information Value Date Recorded Sex Assigned at Not on file Legal Sex Female 6:43 PM CONSULTANT Gender Identity Not on file Sexual Orientation Not on file Obstetrics History Para Term AB IAB SAB Ectopic Multiple Livin g Live Births 0 0 0 0 0 0 0 0 0 0 0 Last Filed Vital Signs Vital Sign Reading Time Taken Comments Blood Pressure 139/81 03/15/2025 8:22 AM CDT Pulse 63 03/15/2025 8:22 AM CDT Temperature 37 C (98.6 F) 03/15/2025 8:22 AM CDT Respiratory Rate 30 10/09/2024 1:12 PM CONSULTANT Oxygen Saturation 96% 03/15/2025 8:22 AM CDT Inhaled Oxygen Concentration - - Weight 106.4 kg (234 lb 9.8 oz) 03/15/2025 8:22 AM CDT Height 171.9 cm (5' 7.68 ) 03/15/2025 8:22 AM CD T Body Mass Index 36.01 03/15/2025 8:22 AM CDT Plan of Treatment Health Maintenance Due Date Last Done Comments Albumin Creatinine Ratio, Urine 1953 Depression Screening 1955 Dilated Eye Exam 1953 Foot Exam 1953 Hepatitis B Screening 1971 Zoster Vaccine (2 of 3) 04/17/2015 02/20/2015 Well Visit 65+ 05/10/2019 05/10/2018 Pneumococcal vaccine 65+ (2 of 2 - PCV) 09/28/2020 09/28/2019, 08/18/2018 Breast Cancer Screening-Mammogram 11/04/2023 11/04/2022, 06/13/2019, 06/30/2016, Additional history exists Osteoporosis Screening-Bone Density Scan 03/10/2024 03/10/2022 Covid-19 Vaccine (2 - 2023-2 5 season) 2024 09/10/2022 Lipid Panel 01/27/2025 01/28/2024 Hemoglobin A1C 02/01/2025 08/04/2024, 01/28/2024 Influenza Vaccine (Season Ended) 2025 08/29/2021, 09/04/2020, 08/18/2018, Additional history exists DTaP/Tdap/Td Vaccine (2 - Td or Tdap) 08/12/2025 08/12/2015 Fall Risk Assessment 10/09/2025 10/09/2024 eGFR 03/15/2026 03/15/2025, 0904/2024, 01/28/2024, Additional history exists Colon Cancer Screening-Colonoscopy 08/11/2033 08/11/2023, 07/05/2020, 06/27/2019, Additional history exists Hepatitis C Screening Completed 06/18/2016 Colon Cancer Screening-CT Colonography Discontinued 08/11/2023, 07/05/2020, 06/27/2019, Additional history exists Colon Cancer Screening-DNA Stool Discontinued 08/11/2023, 07/05/2020, 06/27/2019, Additional history exists Colon Cancer Screening-FIT Discontinued 08/11, 07/05/2020, 06/27/2019, Additional history exists Colon Cancer Screening-Sigmoidoscopy Discontinued 08/11/2023, 07/05/2020, 06/27/2019, Additional history exists Medical Devices Implanted Type Area Braider Tender Device Identifier Shelf Expiration Date Model / Serial / Lot [employer] A-4750.61 Aptus Trilock [id number] Hole Left Distal Radius Volar Plate - S00 - [id number] Implanted:Qty: 1 on 09/29/2018 by Barrett Bello MD at [facility] Plate Left: Wrist [employer] A-4750.61 / 00 / 00 [employer] A-5700.14/1 2.5mm 14mm Cortical Screw Bone Cherrie - S00 - [id number] Implanted:Qty: 1 on 09/29/2018 by Barrett Bello MD at [facility] Screw Left: Wrist [employer] A-5700.14/ [employer] A-5700.13/1 Aptus 2.5mm 13mm Hexadrive 7 Wrist Cortical Screw Bone Titanium - S00 - [id number] Implanted:Qty: 1 on 09/29/2018 by Barrett Bello MD at [facility] Screw Left: Wrist [employer] A-5700.13/ [employer] A-5700.16/1 Aptus 2.5mm 16mm Hexadrive 7 Adaptive Wrist Radius Cortical - S00 - [id number] Implanted:Qty: 1 on 09/29/2018 by Barrett Bello MD at [facility] Screw Left: Wrist [employer] A-5700.16/ [employer] A-5750.18/1 Aptus Trilock 2.5mm 18mm Hexadrive 7 Adaptive Wrist Radius - S00 - [id number] Implanted:Qty: 3 on 09/29/2018 by Barrett Bello MD at [facility] Screw Left: Wrist [employer] A-5750.18/ [employer] A-5750.16/1 2.5mm 16mm Trilock Hexadrive Wrist Radius Screw Bone - S00 - [id number] Implanted:Qty: 2 on 09/29/2018 by Barrett Bello MD at [facility] Screw Left: Wrist [employer] A-5750.16/ [employer] A-5750.20/1 Aptus 2.5mm 20mm Lock Radius Screw Bone Cherrie - S00 - [id number] Implanted:Qty: 1 on 09/29/2018 by Barrett Bello MD at [facility] Screw Left: Wrist [employer] A-5750.20/ Explanted Type Area Braider Tender Device Identifier Shelf Expiration Date Model / Serial / Lot [employer] A-5700.24/1 2.5mm 24mm Hexadrive Wrist Cortical Screw Bone - S00 - [id number] Implanted:Qty: 1 Explanted:Qty: 1 on 09/29/2018 by Barrett Bello MD at [facility] [place] Screw Left: Wrist [employer] A-5700.24/ [employer] [id number] Lanre .45in 9in 1 [place] [employer] Wire Fixation - S00 - [id number] Explanted:Qty: 1 on 09/29/2018 by Barrett Bello MD at [facility] [place] Wire Left: Wrist [employer] [id number] S / [employer] Instruments [id number] Lanre .062in 9in 1 Trocar Smooth Wire Fixation - S00 - [id number] Explanted:Qty: 1 on 09/29/2018 by Barrett Bello MD at [facility] Wire Left: Wrist [employer] [id number] / Procedures Procedure Name Priority Date/Time Associated Diagnosis Comments EGFR Routine 03/15/2025 9:25 AM CDT Nonalcoholic fatty liver disease without nonalcoholic steatohepatitis (VEGA) DIFFERENTIAL AUTO Routine 03/15/2025 9:2 5 AM CDT Nonalcoholic fatty liver disease without nonalcoholic steatohepatitis (VEGA) COMPREHENSIVE METABOLIC PANEL Routine 03/15/2025 9:25 AM CDT Nonalcoholic fatty liver disease without nonalcoholic steatohepatitis (VEGA) CBC WITH AUTO DIFFERENTIAL Routine 03/15/2025 9:25 AM CDT Nonalcoholic fatty liver disease without nonalcoholic steatohepatitis (VEGA) PROTIME-INR Routine 03/15/2025 9:25 AM CDT Nonalcoholic fatty liver disease without nonalcoholic steatohepatitis (VEGA) HEMOGLOBIN A1C Routine 08/04/2024 2:56 PM CDT Type 2 diabetes mellitus without complication, without long-term current use of insulin (HCC) Acquired hypothyroidism Class 3 severe obesity due to excess calories with serious comorbidity and body mass index (BMI) of 40.0 to 44.9 in adult (HCC) LIPID PANEL Routine 01/28/2024 4:26 PM CONSULTANT Hyperlipidemia, unspecified hyperlipidemia type COLONOSCOPY 08/11/2023 10:52 AM CDT SCREENING MAMMOGRAM BILATERAL W LENCHO Schedule Routine, Read Routine (OP Routine) 11/04/2022 2:07 PM CONSULTANT Screening mammogram, encounter for DEXA AXIAL SKELETON BONE DENSITY 1 OR MORE SITES Schedule Routine, Read Routine (OP Routine) 03/10/2022 1:21 PM CDT Fracture of unspecified carpal bone, right wrist, initial encounter for closed fracture SERUM HEPATITIS C AB Routine 06/18/2016 4:10 AM CDT from Last 3 Months or Most Recently Relevant to Health Maintenance Results * (ABNORMAL) eGFR (03/15/2025 9:25 AM CDT) eGFR 37(L) >=60 mL/min/1. 73 m2 Comment: Interpretive Data Reference Interval Normal >/= 90 mL/min/1.73m2 Mildly decreased* 60 - 89 mL/min/1.73m2 Mildly to moderately decreased 45 - 59 mL/min/1.73m2 Moderately to severely decreased 30 - 44 mL/min/1.73m2 Severely decreased 15 - 29 mL/min/1.73m2 Kidney Failure < 15 mL/min/1.73m2 *Relative to young adult level Estimated glomerular filtration rate is determined by the 2020 CKD-EPI equation recommended by the National Kidney Foundation (A Unifying Approach to GFR Estimation: Recommendations of the NKF-ASK Task Force on Reassessing the Inclusion of Race in Diagnosing Kidney Disease, JASN 202). The CKD-EPI equation should not be used for patients with unstable renal function and has not been validated in children and those over 70. Current interpretive data was last reviewed 2021. Blood 03/15/2025 9:25 AM CDT 03/15/2025 9:37 AM CDT Toñito Frank MD LAB BLOOD ORDERABLES Final Result JA BARKER [id number] [facility]. Department [place] [address] * Differential, auto (03/15/2025 9:25 AM CDT) Neutrophil abs 4.88 1.50 - 6.50 K/cumm Imm gran abs 0.02 0.00 - 0.10 K/cumm [facility] Lymphocyte abs 1.76 0.80 - 3.30 K/cumm [facility] Monocyte abs 0.79 0.20 - 0.80 K/cumm [facility] Eosinophil abs 0.19 0.00 - 0.50 K/cumm [facility] Basophil abs 0.04 0.00 - 0.10 K/cumm [facility] Neutrophil pct 63.5 % [facility] Comment: Interpretive Data Percent cell count reference ranges are not reported, since discordance with absolute values may lead to misinterpretation of CBC data. Current Interpretive Data was last revised on 2018. Imm gran pct 0.3 % [facility] Comment: Interpretive Data Percent cell count reference ranges are not reported, since discordance with absolute values may lead to misinterpretation of CBC data. Current Interpretive Data was last revised on 2018. Lymphocyte pct 22.9 % [facility] Comment: Interpretive Data Percent cell count reference ranges are not reported, since discordance with absolute values may lead to misinterpretation of CBC data. Current Interpretive Data was last revised on 2018. Monocyte pct 10.3 % [facility] Comment: Interpretive Data Percent cell count reference ranges are not reported, since discordance with absolute values may lead to misinterpretation of CBC data. Current Interpretive Data was last revised on 2018. Eosinophil pct 2.5 % [facility] Comment: Interpretive Data Percent cell count reference ranges are not reported, since discordance with absolute values may lead to misinterpretation of CBC data. Current Interpretive Data was last revised on 2018. Basophil pct 0.5 % [facility] Comment: Interpretive Data Percent cell count reference ranges are not reported, since discordance with absolute values may lead to misinterpretation of CBC data. Current Interpretive Data was last revised on 2018. Blood 03/15/2025 9:25 AM CDT 03/15/2025 9:36 AM CDT Toñito Frank MD LAB BLOOD ORDERABLES Final Result Performing Organization Address [facility]/ZIP Co de Phone Number AJ WOODWARD [phone] [employer] [address] * CBC with auto differential (03/15/2025 9:25 AM CDT) WBC 7.68 3.80 - 9.90 K/cumm Hgb 13.5 11.9 - 15.5 g/dL [facility] Hct 41.4 35.6 - 45.5 % [facility] Plt 190 150 - 400 K/cumm [facility] MPV 10.4 9.1 - 12.3 fL [facility] RBC 4.37 3.90 - 5.20 M/cumm [facility] MCV 94.7 81.3 - 96.4 fL [facility] MCH 30.9 27.1 - 33.3 pg [facility] MCHC 32.6 32.3 - 35.7 g/dL [facility] RDW CV 12.2 11.1 - 14.9 % [facility] RDW SD 42.8 35.7 - 48.1 fL [facility] NRBC abs 0.00 0.00 - 0.01 K/cumm [facility] Blood 03/15/2025 9:25 AM CDT 03/15/2025 9:36 AM CDT us Toñito Frank MD LAB BLOOD ORDERABLES Final Result Performing Organization Address [facility]/ZIP Co de Phone Number AJ WOODWARD [phone] [facility] [place] [address] * Protime-INR (03/15/2025 9:25 AM CDT) PT 10.3 9.7 - 13.0 sec INR 0.95 0.90 - 1.20 [facility] Comment: Interpretive data Oral anticoagulant therapeutic ranges: Venous thromboembolism prophylaxis or treatment: 2.0-3.0 CARDIOLOGY Standard range: 2.0-3.0 High-intensity range: 2.5-3.5 Refer to indication-specific guidelines for appropriate target ranges for prosthetic heart valve replacement. Current interpretive data was last revised on 2019. Blood 03/15/2025 9:25 AM CDT 03/15/2025 9:37 AM CDT us Toñito Frank MD LAB BLOOD ORDERABLES Final Result [facility] [id number] [facility]. [place] [place] [address] * (ABNORMAL) Comprehensive metabolic panel (03/15/2025 9:25 AM CDT) Sodium 139 135 - 145 mmol/L Potassium, pl 4.0 3.3 - 4.9 mmol/L [facility] Chloride 102 97 - 110 mmol/L [facility] CO2 28 22 - 32 mmol/L [facility] Anion gap 9 2 - 15 mmol/L [facility] BUN 30(H) 6 - 25 mg/dL [facility] Creatinine 1.50(H) 0.60 - 1.10 mg/dL [facility] Glucose 98 70 - 199 mg/dL [facility] Comment: Interpretive Data Fasting glucose >/= 126 mg/dl is diagnostic for diabetes. Fasting is defined as no caloric intake for at least 8 hours. Fasting glucose between 100 mg/dl to 125 mg/dl is diagnostic of prediabetes. In a patient with classic symptoms of hyperglycemia or hyperglycemic crisis, a random glucose >/= 200 mg/dl is diagnostic for diabetes. In the absence of unequivocal hyperglycemia, results should be confirmed by repeat testing. The classification and Diagnosis of Diabetes Diabetes Care 2022; 46: S19-S40. Current interpretive data was last revised 2022. Calcium 9.7 8.5 - 10.3 mg/dL [facility] Bilirubin, total 0.5 0.1 - 1.2 mg/dL [facility] Protein, pl 7.4 6.5 - 8.5 g/dL [facility] Albumin 4.3 3.5 - 5.0 g/dL [facility] Alk phos 72 40 - 130 Units/L [facility] ALT 17 7 - 45 Units/L [facility] AST 23 10 - 45 Units/L [facility] Blood 03/15/2025 9:25 AM CDT 03/15/2025 9:37 AM CDT Toñito Frank MD LAB BLOOD ORDERABLES Final Result Performing Organization Address [facility] Co de Phone Number [facility] [id number] [address] [facility] [facility] [place] [address] * Hemoglobin A1c (08/04/2024 2:56 PM CDT) Pathologist [facility] Hgb A1C 5.1 4.0 - 5.6 % Estimated Average Glucose 100 mg/dL [facility] Comment: The ADA recommends reporting an estimated Average Glucose (eAG) with all Hemoglobin A1c results using the equation derived from a study of 507 normal and diabetic adults. Minority populations were underrepresented and children were not included. (Diabetes Care 31:1082-4183, 2008). The eAG is not equivalent to a fasting glucose. Blood 08/04/2024 2:56 PM CDT 08/04/2024 3:12 PM CDT Gilma Arceo MD LAB BLOOD ORDERABLES Fin al Result Performing Organization Address City/[facility]/ZIP Co de Phone Number [facility] [phone] [facility] [place] [address] * Lipid panel (01/28/2024 4:26 PM CONSULTANT) Pathologist [facility] Cholesterol 146 30 - 199 mg/dL [facility] Comment: Interpretive Data Ages < or = 19 years Acceptable: <170 mg/dL Borderline high: 170-199 mg/dL High: >or= 200 mg/dL Ages > or = 20 years Desirable: <200 mg/dL Borderline high: 200-239 mg/dL High: >or= 240 mg/dL Literature References: 1. Expert Panel on Integrated Guidelines for Cardiovascular Health and Risk Reduction in Children and Adolescents. Pediatrics 2011;128:S213 2. NCEP Expert Panel. Circulation 2004;110:227 Current Interpretive Data was last revised on 2018. Triglycerides 76 <=149 mg/dL [facility] Comment: Interpretive Data Ages < or = 9 years Acceptable: <75 mg/dL Borderline high: 75-99 mg/dL High: >or= 100 mg/dL Ages 10 to 20 years Acceptable: <90 mg/dL Borderline high: 90-129 mg/dL High: >or= 130 mg/dL Ages > or = 20 years Desirable: <150 mg/dL Borderline high: 150-199 mg/dL High: 200-499 mg/dL Very high: >or= 499 mg/dL Literature References: 1. Expert Panel on Integrated Guidelines for Cardiovascular Health and Risk Reduction in Children and Adolescents. Pediatrics 2011;128:S213 2. NCEP Expert Panel. Circulation 2004;110:227 Current Interpretive Data was last revised on 2018. HDL 44 >=40 mg/dL [facility] Comment: Interpretive Data Ages < or = 19 years Acceptable: >45 mg/dL Borderline low: 40-45 mg/dL Low: <40 mg/dL Ages > or = 20 years Desirable: >or= 60 mg/dL Low: <40 mg/dL Literature References: 1. Expert Panel on Integrated Guidelines for Cardiovascular Health and Risk Reduction in Children and Adolescents. Pediatrics 2011;128:S213 2. NCEP Expert Panel. Circulation 2004;110:227 Current Interpretive Data was last revised on 2018. LDL, calculated 87 <=129 mg/dL [facility] Comment: Interpretive Data Ages < or = 19 years Acceptable: <110 mg/dL Borderline high: 110-129 mg/dL High: >or= 130 mg/dL Ages > or = 20 years Optimal: <100 mg/dL Near optimal: 100-129 mg/dL Borderline high: 130-159 mg/dL High: >160 mg/dL Literature References: 1. Expert Panel on Integrated Guidelines for Cardiovascular Health and Risk Reduction in Children and Adolescents. Pediatrics 2011;128:S213 2. NCEP Expert Panel. Circulation 2004;110:227 Current Interpretive Data was last revised on 2018. Non-HDL Cholesterol 102 mg/dL AJ WOODWARD Comment: Interpretive Data Ages < or = 19 years Acceptable: <120 mg/dL Borderline high: 120-144 mg/dL High: >145 mg/dL Ages > or = 20 years When triglycerides are >200 mg/dL, Non-HDL cholesterol is a secondary target of therapy with treatment goals that are 30 mg/dL greater than the LDL cholesterol target. Literature References: 1. Expert Panel on Integrated Guidelines for Cardiovascular Health and Risk Reduction in Children and Adolescents. Pediatrics 2011;128:S213 2. NCEP Expert Panel. Circulation 2004;110:227 Current Interpretive Data was last revised on 2018. Chol/HDL ratio 3 AJ [facility] Blood 01/28/2024 4:26 PM CONSULTANT 01/28/2024 4:43 PM CONSULTANT us Gilma Arceo MD LAB BLOOD ORDERABLES Fin al Result [facility] [id number] [facility]. Department [place] [address] * COLONOSCOPY (08/11/2023 10:52 AM CDT) Anatomical Region Laterality Modality Other Narrative Procedure Note Jj Hwang MD - 08/11/2023 10:52 AM CDT ENDOSCOPY LAB Patient Name: Marichuy Romano Procedure Date: 08/11/2023 10:52 AM Admit Type: Outpatient Room: [facility] 6 Date of : 1955 Instrument Name: [id number] Gender: Female Note Status: Finalized Procedure: Colonoscopy Indications: High risk colon cancer surveillance: Personalhistory of colonic polyps, Last colonoscopy: June 2020 Providers: Jj Hwang M.D. Referring MD: Chanelle Serrato M.D., Cr Franklin MD Medicines: Monitored Anesthesia Care Complications: No immediate complications. Estimated Blood Loss: Estimated blood loss: none. Procedure: Pre-Anesthesia Assessment: - Immediately prior to administration ofmedications, the patient was re-assessed for adequacy to receive sedatives. - The risks and benefits of the procedure and the sedation options and risks were discussed with the patient. All questions were answered and informed consent was obtained. The benefits, risks and alternatives of theprocedure and sedation were discussed and informed consentwas obtained. All questions were answered. Please referto the signed informed consent document in the medical record. The scope was passed under direct vision.The Colonoscope was introduced through the anus and advanced to the the cecum, identified byappendiceal orifice and ileocecal valve. The colonoscopy was performed without difficulty. The patient tolerated the procedure well. The quality of the bowel preparation was good. The quality of the bowel preparation was evaluated using the BBPS (BostonBowel Preparation Scale) with scores of: Right Colon = 3, Transverse Colon = 3 and Left Colon = 3 (entiremucosa seen well with no residual staining, smallfragments of stool or opaque liquid). The total BBPS score equals 9. The bowel preparation used was GoLYTELYvia split dose instruction. Findings: The perianal and digital rectal examinations were normal. A 6 mm polyp was found in the transverse colon. The polyp wassessile. The polyp was removed with a cold snare. Resection and retrieval were complete. A medium post mucosectomy scar was found in the ascending colon. The scar tissue was healthy in appearance. The exam was otherwise without abnormality on direct and retroflexion views. Impression: - One 6 mm polyp in the transverse colon, removedwith a cold snare. Resected and retrieved. - Post mucosectomy scar in the ascending colon. - The examination was otherwise normal on directand retroflexion views. Recommendation: - Repeat colonoscopy in 5 years for surveillance. - Return to primary care physician as previously scheduled. - Call my nurses in the GI office at [phone] ([phone]) for your final pathology results in7 days. Attending Participation: I personally performed the entire procedure. Electronically signed by Jj Hwang MD Jj Hwang M.D. 08/11/2023 11:18:16 AM This document was signed electronically. Number of Addenda: 0 Note Initiated On: 08/11/2023 10:52 AM Scope Withdrawal Time: 0 hours 6 minutes 12 seconds Scope In: 11:04:40 AM Scope Out: 11:14:15 AM us Jj Hwang MD ENDOSCOPY PROCEDUR ES Final Result * Screening Mammogram Bilateral W Lencho (11/04/2022 2:07 PM CONSULTANT) Anatomical Region Laterality Modality Breast Bilateral Mammography Narrative 11/05/2022 1:43 PM CONSULTANT Mammogram Technique: Bilateral Digital Breast Tomosynthesis, Bilateral C-view 2D Screening mammogram. Views obtained: bilateral craniocaudal and bilateral mediolateral oblique. Computer Aided Detection was performed. Mammogram Findings: The present examination has been compared to prior imaging studies performed at [facility] on 11/10/2013, 06/30/2016 and 06/13/2019. There are scattered areas of fibroglandular density. There is no suspicious abnormality in either breast. Impression: There is no mammographic evidence of malignancy. Annual screening mammography is recommended. OVERALL FINAL ASSESSMENT: BI-RADS CATEGORY 1: Negative. Procedure Note Kaela Dudley MD - 11/05/2022 Mammogram Technique: Bilateral Digital Breast Tomosynthesis, Bilateral C-view 2D Screening mammogram. Views obtained: bilateral craniocaudal and bilateral mediolateral oblique. Computer Aided Detection was performed. Mammogram Findings: The present examination has been compared to prior imaging studies performed at [facility] on 11/10/2013, 06/30/2016 and 06/13/2019. There are scattered areas of fibroglandular density. There is no suspicious abnormality in either breast. Impression: There is no mammographic evidence of malignancy. Annual screening mammography is recommended. OVERALL FINAL ASSESSMENT: BI-RADS CATEGORY 1: Negative. us Self Screening Mammogram IMG MAMMO PROCEDURES Fi nal Result * Dexa Axial Skeleton Bone Density 1 or 2 Site (03/10/2022 1:21 PM CDT) Anatomical Region Laterality Modality Body N/A Digital Radiogra phy 03/10/2022 1:43 PM CDT Impressions 03/10/2022 4:38 PM CDT 1. The bone mineral density of the lumbar spine is normal. Diffuse degenerative changes are present in the lumbar spine, causing an overestimate of lumbar spine bone density. 2. The bone mineral density of the left femoral neck is normal. 3. The bone mineral density of the left total hip is normal. 4. Overall, the above findings are normal by WHO criteria. 5. Calculation of fracture risk using the FRAX model is not appropriate in certain settings. It was not performed in this patient because the patient met the following condition(s): normal bone density. General comments regarding interpretation of bone density measurements: A) In children, premenopausal woman and males under age 50 not at increased risk for fractures only Z-scores, not T-scores are used to indicate risk. A Z-score above -2.0 is defined as within the expected range for age and Z-score at or less than -2.0 is below the expected range for age . A Z-score below the expected range for age in a patient with recent fractures and/or chronic corticosteroid treatment is consistent with a diagnosis of osteoporosis. B) In post menopausal women and males over 50, comparison of the measured bone mineral density with the average value in young normal subjects (the T-score ) has been found to be useful in assessing fracture risk. Fracture risk approximately doubles for each 1.0 standard deviation (SD) in individual's hip or spine bone mineral density is below the average value of young normal subjects. The World Health Organization (WHO) has defined T-scores of -1.0 to -2.5 as diagnostic of low bone mass (OSTEOPENIA), and T-scores of -2.5 or lower to be diagnostic of OSTEOPOROSIS, based on the site of lowest bone density. Note that there will be a change in reporting format and reference databases as patients move from the younger population (group A) to the older population (group B) The National Osteoporosis Foundation (www.nof.org) recommends adequate intake of calcium and vitamin D and regular weight-bearing exercise in all patients. They recommend pharmacologic treatment in postmenopausal women and men age 50 and older presenting with any of the followin) Osteoporosis, after appropriate evaluation to exclude secondary causes. 2) A hip or vertebral (clinical or radiographic) fracture, regardless of the bone density. 3) Low bone mass (Osteopenia) and one or more of: other prior fractures, secondary causes associated with high risk of fracture (such as glucocorticoid use or total immobilization), or computed high risk of fracture (10-yr probability of hip fracture >= 3% or a 10-yr probability of any major osteoporosis-related fracture >= 20% based on the [place].-adapted WHO algorithm), available at http://www.shef.ac.uk/FRAX). Dictated by: Delroy Arriaga M.D. The radiology attending physician has personally reviewed this study, and had reviewed and/or edited this written report and agrees with it. Electronically signed by: Se Baldwin M.D. Narrative 03/10/2022 4:38 PM CDT BONE DENSITOMETRY OF THE SPINE AND HIP DATE OF STUDY: 03/10/2022 HISTORY: 66-year-old postmenopausal woman with cessation of menstruation at age 57, nonalcoholic steatohepatitis and hepatic fibrosis, and multiple fractures after the age of 60, including the left humerus and wrist, left ankle and right wrist. She is being treated with vitamin D supplementation. Evaluate bone mineral density. Additional risk factors for fracture: Severe long-standing liver disease. FINDINGS (SPINE): The bone mineral density of L1, L2 was assessed by dual-energy x-ray absorptiometry. L3 and L4 were excluded due to T score differences likely related to degenerative changes. The average bone mineral density within this region is 1.121 gm/sq-cm. This is 3.2 standard deviations above the mean of the average bone mineral density for age- and gender-matched subjects (the Z-score). It is 1.3 standard deviations above the mean peak bone mineral density in young adults (the T-score). FINDINGS (FEMORAL NECK): The bone mineral density of the left femoral neck was assessed by dual-energy x-ray absorptiometry. The average bone mineral density within the femoral neck region is 0.819 gm/sq-cm. This is 1.4 standard deviations above the mean of the average bone mineral density for age- and gender-matched subjects (the Z-score). It is 0.3 standard deviations below the mean peak bone mineral density in young adults (the T-score). FINDINGS (TOTAL HIP): The bone mineral density of the left hip was assessed by dual-energy x-ray absorptiometry. The average bone mineral density within the total hip region is 0.953 gm/sq-cm. This is 1.5 standard deviations above the mean of the average bone mineral density for age- and gender-matched subjects (the Z-score). It is 0.1 standard deviations above the mean peak bone mineral density in young adults (the T-score). SUMMARY OF CURRENT RESULTS: Region BMD T-score Z-score AP Spine (L1, L2) 1.121 1.3 3.2 Femoral Neck (Left) 0.819 -0.3 1.4 Total Hip (Left) 0.953 0.1 1.5 Procedure Note Se Baldwin MD - 03/10/2022 BONE DENSITOMETRY OF THE SPINE AND HIP DATE OF STUDY: 03/10/2022 HISTORY: 66-year-old postmenopausal woman with cessation of menstruation at age 57, nonalcoholic steatohepatitis and hepatic fibrosis, and multiple fractures after the age of 60, including the left humerus and wrist, left ankle and right wrist. She is being treated with vitamin D supplementation. Evaluate bone mineral density. Additional risk factors for fracture: Severe long-standing liver disease. FINDINGS (SPINE): The bone mineral density of L1, L2 was assessed by dual-energy x-ray absorptiometry. L3 and L4 were excluded due to T score differences likely related to degenerative changes. The average bone mineral density within this region is 1.121 gm/sq-cm. This is 3.2 standard deviations above the mean of the average bone mineral density for age- and gender-matched subjects (the Z-score). It is 1.3 standard deviations above the mean peak bone mineral density in young adults (the T-score). FINDINGS (FEMORAL NECK): The bone mineral density of the left femoral neck was assessed by dual-energy x-ray absorptiometry. The average bone mineral density within the femoral neck region is 0.819 gm/sq-cm. This is 1.4 standard deviations above the mean of the average bone mineral density for age- and gender-matched subjects (the Z-score). It is 0.3 standard deviations below the mean peak bone mineral density in young adults (the T-score). FINDINGS (TOTAL HIP): The bone mineral density of the left hip was assessed by dual-energy x-ray absorptiometry. The average bone mineral density within the total hip region is 0.953 gm/sq-cm. This is 1.5 standard deviations above the mean of the average bone mineral density for age- and gender-matched subjects (the Z-score). It is 0.1 standard deviations above the mean peak bone mineral density in young adults (the T-score). SUMMARY OF CURRENT RESULTS: Region BMD T-score Z-score AP Spine (L1, L2) 1.121 1.3 3.2 Femoral Neck (Left) 0.819 -0.3 1.4 Total Hip (Left) 0.953 0.1 1.5 IMPRESSION: 1. The bone mineral density of the lumbar spine is normal. Diffuse degenerative changes are present in the lumbar spine, causing an overestimate of lumbar spine bone density. 2. The bone mineral density of the left femoral neck is normal. 3. The bone mineral density of the left total hip is normal. 4. Overall, the above findings are normal by WHO criteria. 5. Calculation of fracture risk using the FRAX model is not appropriate in certain settings. It was not performed in this patient because the patient met the following condition(s): normal bone density. General comments regarding interpretation of bone density measurements: A) In children, premenopausal woman and males under age 50 not at increased risk for fractures only Z-scores, not T-scores are used to indicate risk. A Z-score above -2.0 is defined as within the expected range for age and Z-score at or less than -2.0 is below the expected range for age . A Z-score below the expected range for age in a patient with recent fractures and/or chronic corticosteroid treatment is consistent with a diagnosis of osteoporosis. B) In post menopausal women and males over 50, comparison of the measured bone mineral density with the average value in young normal subjects (the T-score ) has been found to be useful in assessing fracture risk. Fracture risk approximately doubles for each 1.0 standard deviation (SD) in individual's hip or spine bone mineral density is below the average value of young normal subjects. The World Health Organization (WHO) has defined T-scores of -1.0 to -2.5 as diagnostic of low bone mass (OSTEOPENIA), and T-scores of -2.5 or lower to be diagnostic of OSTEOPOROSIS, based on the site of lowest bone density. Note that there will be a change in reporting format and reference databases as patients move from the younger population (group A) to the older population (group B) The National Osteoporosis Foundation (www.nof.org) recommends adequate intake of calcium and vitamin D and regular weight-bearing exercise in all patients. They recommend pharmacologic treatment in postmenopausal women and men age 50 and older presenting with any of the followin) Osteoporosis, after appropriate evaluation to exclude secondary causes. 2) A hip or vertebral (clinical or radiographic) fracture, regardless of the bone density. 3) Low bone mass (Osteopenia) and one or more of: other prior fractures, secondary causes associated with high risk of fracture (such as glucocorticoid use or total immobilization), or computed high risk of fracture (10-yr probability of hip fracture >= 3% or a 10-yr probability of any major osteoporosis-related fracture >= 20% based on the [place].-adapted WHO algorithm), available at http://www.shef.ac.uk/FRAX). Dictated by: Delroy Arriaga M.D. The radiology attending physician has personally reviewed this study, and had reviewed and/or edited this written report and agrees with it. Electronically signed by: Se Baldwin M.D. Cr Franklin MD IM DXA PROCEDURES Final R esult * Serum Hepatitis C ab (06/18/2016 4:10 AM CDT) HCV ab Negative NEG CDR HISTOR ICAL RESULTS Comment: Interpretive Data Positive results should be confirmed by a molecular method. If positive, a second separately collected sample should be submitted for Hepatitis C Virus (HCV) RNA Detection and Quantitation by Real-Time Reverse Engine Repairer Production-PCR (RT-PCR). Current interpretive data was last revised on 2016. Serum 06/18/2016 4:10 AM CDT Narrative CDR HISTORICAL RESULTS - 06/19/2016 8:01 AM CDT Test performed at [facility], [address] [facility],, [place], [place], [facility], [address]. Toñito Frank MD LAB BLOOD ORDERABLES Final Result CDR HISTORICAL RESULTS from Last 3 Months or Most Recently Relevant to Health Maintenance Insurance [employer] MEDICARE Exercise the World OPEN [employer] [facility] MEDICARE [facility] [place] [id number] [employer] MEDICARE * Guarantor: A PHASE 3, DOUBLE-BLIND, RANDOMIZED, LONG-TERM, PLACEBO-CONTROLLED, MULTICENTER STUDY EVALUATING THE SAFETY AND EFFICACY OF OBETICHOLIC ACID IN SUBJECTS WITH Account Type Relation to Patient Date of Phone Billing Address Research [employer] MEDICARE Advance Directives For more information, please contact: [phone] * Full Code (Latest Code Status on File) Date Activated Date Inactivated Comments 10/09/2024 11:22 AM 10/09/2024 5:55 PM * Full Code Date Activated Date Inactivated Comments 08/11/2023 10:08 AM 08/11/2023 4:17 PM * Full Code Date Activated Date Inactivated Comments 09/11/2020 8:33 AM 09/11/2020 3:58 PM * Full Code Date Activated Date Inactivated Comments 07/05/2020 7:27 AM 07/05/2020 1:20 PM * Full Code Date Activated Date Inactivated Comments 06/27/2019 8:38 AM 06/27/2019 2:16 PM Care Teams Aircraft Log Clerk Relationship Specialty Start Date End Date Cr Franklin MD [address] [place] [id number] PCP - General 03/30/17 Toñito Frank MD [address] [id number] Referring Physician Transplant Hepatology 06/16/20
--- OUTSIDE RECORDS SUMMARY | 2025-04-05 09:05 | XMS_ITS | Clinical Summary ---
Author Organization [facility] Address [address] [place] [address] Care Team Providers Care Mixer Runner Name Role Phone Cr Franklin DO Primary Care Provider [phone] Source Comments [facility] [email or web address],non-owned Affiliates and Associated Physician Practices is amultiple site organization consisting of ambulatory clinics and hospital sitesin [place], [place], [place] and [place]. This disclosure is being madepursuant to the Care Everywhere program and may not contain all information available regarding this patient. 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 Gender Identity Not on file Sexual Orientation Not on file Plan of Treatment Health Maintenance Due Date Last Done Comments BONE DENSITY TESTING 1955 COLOGUARD (AGES 45-75) - COL ON CA SCREENING 1955 COLON MONITORING 1953 COLONOSCOPY - COLON CA SCREENING 1953 CT COLONOGRAPHY - COLON CA SCREENING 1955 Colorectal Cancer Screening 1953 FIT - COLON CA SCREENING 1953 FLEX SIG - COLON CA SCREENING 1953 LIPID TESTING 1953 MAMMOGRAM 1953 HEPATITIS C SCREENING 07/23/1971 DTAP/TDAP/TD VACCINES (1 - Tdap) 1972 PNEUMOCOCCAL VACCINE 50+ (1 of 1 - PCV) 2003 ZOSTER VACCINE (1 of 2) 2003 COVID-19 VACCINE (2023-2 5 season) 2024 DEPRESSION SCREENING 11/29/2024 INFLUENZA VACCINE (Season Ended) 2025 Respiratory Syncytial Virus (RSV) Vaccine Pt: or over 60 yrs (1 - 1-dose 75+ series) 2028 HEPATITIS B VACCINE Aged Out No longe r eligible based on patient's age to complete this topic HIB VACCINE Aged Out No longer eligi ble based on patient's age to complete this topic HPV VACCINE Aged Out No longer eligi ble based on patient's age to complete this topic MENINGOCOCCAL (Group B) VACC INE SHARED DECISION-MAKING Aged Out No longer eligibl e based on patient's age to complete this topic MENINGOCOCCAL GROUPS A/C/Y/W VACCINE Aged Out No longer eligible b ased on patient's age to complete this topic Insurance [facility] Teams Mixer Runner Relationship Specialty Start Date End Date Cr Franklin DO [address] [place] [address] PCP - General Internal Medicine 08/27/16
--- OUTSIDE RECORDS SUMMARY | 2025-04-05 09:05 | XMS_ITS | Referral Summary ---
Author Organization [facility] Address [address] [place] [address] Care Team Providers Care Popcorn Vendor Name Role Phone Cr Franklin MD Primary Care Provider [phone] Toñito Frank MD Unavailable [phone] Encounters Date Type Department Care Team Description 03/20/2025 Telephone [facility] [address] [place] [address] [place] [address] Marjorie Hess 03/19/2025 Documentation [facility] [address] [place] [address] [place] [address] Bakari Juarez RN 03/18/2025 Results Follow-Up [facility] [address] [place] [address] [place] [address] Toñito Frank MD 03/15/2025 9:20 AM CDT Lab [facility] [address] [place] [address] Nonalcoholic fatty liver disease without nonalcoholic steatohepatitis (VEGA) 03/15/2025 8:20 AM CDT Office Visit [facility] [facility] [address] [place] [address] Toñtio Frank MD Nonalcoholic fatty liver disease without nonalcoholic steatohepatitis (VEGA) (Primary Dx) 02/28/2025 Documentation [facility] [address]th [place] [address] [place] [address] Ally Arnold LPN from Last 3 Months Allergies Active Allergy Reactions Criticality Noted Date [...] cetirizine (ZyrTEC) 10 mg tablet as needed Active fluticasone (FLONASE) 50 mcg/actuation nasal spray as needed Active ONETOUCH VERIO strip 018 Active levothyroxine (SYNTHROID, LEVOTHROID) 150 mcg tablet Take 1 tablet (150 mcg total) by mouth daily 3 018 Active pfoezsefxihc-Xs-w scooter-minerals tablet Active pravastatin (PRAVACHOL) 20 mg tablet Take 1 tablet (20 mg total) by mouth daily 020 Active LORazepam (ATIVAN) 0.5 mg tablet Take 1 tablet (0.5 mg total) by mouth as needed 021 Active omega 8-zyg-lwk-fish oil (Fish OiL) 100-160-1,000 mg capsule Take by mouth daily 019 Active turmeric/turmeric ext/pepr ext (turmeric-turmeri c ext-pepper) 500-3 mg capsule Take by mouth daily 019 Active PHENobarbital-hyo scyaamine-atropin e-scopoloamine () 16.2-0.1037 -0.0194 mg per tabletIndications :Irritable Bowel Syndrome Take 1 tablet by mouth 4 (four) times a day as needed for heartburn 30 tablet 11 022 Active Farxiga 10 mg tablet Take 1 tablet (10 mg total) by mouth daily 023 Active hydroCHLOROthiazi de (HYDRODIURIL) 25 mg tablet Take 2 tablets (50 mg total) by mouth daily 024 Active irbesartan (AVAPRO) 300 mg tablet Take 1 tablet (300 mg total) by mouth daily 023 Active Lumigan 0.01 % ophthalmic drops [address] (PROTONIX) 40 mg EC tablet Take 1 tablet (40 mg total) by mouth daily 30 tablet 11 024 Active semaglutide (Ozempic) 2 mg/dose (8 mg/3 mL) pen injector injectionIndicati ons:Type 2 diabetes mellitus without complication, without long-term current use of insulin (HCC),Essential (primary) hypertension,Enco unter for medication monitoring,Hyperl ipidemia, unspecified hyperlipidemia type INJECT 2 MG SUBCUTANEOUSLY EVERY 7 DAYS 9 mL 1 024 Active gabapentin (NEURONTIN) 100 mg capsuleIndication s:Restless Legs Syndrome Take 1 cap PO q evening (1 hr before symptom onset), q3-5 days inc by 1 cap as needed/tolerated up to 6 caps q evening 180 capsule 024 Active Additional Information Patient not taking.Reported on 03/15/2025 buPROPion SR (WELLBUTRIN SR) 150 mg 12 hr tablet TAKE 1 TABLET BY MOUTH TWICE A DAY 180 tablet 1 025 Active naltrexone (DEPADE) 50 mg tablet TAKE 1 TABLET BY MOUTH EVERY DAY 90 tablet 1 025 Active hyoscyamine (LEVSIN) 0.125 mg SL [...] (06/14/2020): Added automatically from request for surgery [id number] Pure hypercholesterolemia 12/14/2019 Encounter for colonoscopy du e to history of adenomatous colonic polyps 05/18/2019 Overview (05/18/2019): Added automatically from request for surgery [id number] Closed fracture of lower end of left radius with routine healing 09/28/2018 Overview (09/28/2018): Added automatically from request for surgery [id number] Essential (primary) hypertension 08/29/2018 Assessment & Plan [...] 06/17/2018 Assessment & Plan (10/03/2023 9:19 PM FUN HOUSE OPERATOR): Reviewed calorie restriction based on BMR as [...] phone. Assessment & Plan (02/06/2023 10:10 PM FUN HOUSE OPERATOR): Reviewed calorie restriction based on BMR as [...] phone. Assessment & Plan (12/01/2021 4:22 PM FUN HOUSE OPERATOR): Reviewed calorie restriction based on BMR as [...] refocus. Assessment & Plan (10/06/2020 2:58 PM FUN HOUSE OPERATOR): Reviewed calorie restriction based on BMR as previously detailed. Reviewed recommendation/goal of >/= 150 minutes/week moderate-intensity aerobic exercise. Asked to keep detailed food diary for at least 1 week and bring to next visit and/or continue tracking on phone. Assessment & Plan (02/02/2020 8:30 PM FUN HOUSE OPERATOR): Reviewed calorie restriction based on BMR as previously detailed. Reviewed recommendation/goal of >/= 150 minutes/week moderate-intensity aerobic exercise. Assessment & Plan (11/04/2019 10:55 AM FUN HOUSE OPERATOR): Reviewed calorie restriction based on BMR as [...] exercise. Assessment & Plan (12/01/2018 1:18 PM FUN HOUSE OPERATOR): Reviewed calorie restriction based on BMR as [...] 06/17/2018 Assessment & Plan (10/03/2023 9:23 PM FUN HOUSE OPERATOR): Reviewed study labs -- scanned. Assessment & Plan (07/29/2021 10:34 AM CDT): She will forward lab results. Assessment & Plan (11/04/2019 10:56 AM FUN HOUSE OPERATOR): Continue low-carb (<150 g/day), low-glycemic diet. Continue metformin. Assessment & Plan (06/21/2019 11:06 PM CDT): Reviewed recent labs. Continue low-carb (<150 g/day), low-glycemic diet. Continue metformin. Assessment & Plan (03/18/2019 3:16 PM CDT): Continue low-carb (<150 g/day), low-glycemic diet. Reviewed importance of adequate protein intake of 1-1.2 g/kg IBW/day. Reviewed recent labs from VEGA study -- scanned. Assessment & Plan (12/01/2018 1:21 PM FUN HOUSE OPERATOR): Continue low-carb (<150 g/day), low-glycemic diet. Continue [...] 06/17/2018 Assessment & Plan (10/03/2023 9:22 PM FUN HOUSE OPERATOR): Obesity is improving. Plan: Diet interventions: as [...] Other: Assessment & Plan (02/06/2023 10:16 PM FUN HOUSE OPERATOR): Obesity is worse recently, but overall remains improved.. Plan: Diet interventions: as noted.., Regular aerobic exercise program discussed. and Medication as prescribed. Assessment & Plan (08/12/2022 1:22 PM CDT): Obesity is improving. Plan: Diet interventions: as noted.., Regular aerobic exercise program discussed. and medications as prescribed. Assessment & Plan (12/01/2021 4:27 PM FUN HOUSE OPERATOR): Obesity is improving with treatment. Diet interventions: [...] ordered. Assessment & Plan (10/06/2020 3:02 PM FUN HOUSE OPERATOR): Obesity is worsening. Recommended counseling. Diet interventions: as noted. Regular aerobic exercise program discussed. Pharmacotherapy as ordered. Discussed options and will add naltrexone to the bupropion she is already taking. Discussed risks, benefits, alternatives, potential side effects. Assessment & Plan (02/02/2020 8:39 PM FUN HOUSE OPERATOR): Obesity is improving with treatment. Behavioral treatment: have recommended counsling. Diet interventions: as noted. Regular aerobic exercise program discussed. Pharmacotherapy as ordered. Assessment & Plan (11/04/2019 10:57 AM FUN HOUSE OPERATOR): Obesity is improving with treatment. Diet interventions: [...] ordered. Assessment & Plan (12/01/2018 1:25 PM FUN HOUSE OPERATOR): Obesity is improving with treatment. Diet interventions: [...] complication Assessment & Plan (10/03/2023 9:19 PM FUN HOUSE OPERATOR): Reviewed most recent labs available. Continue low-carb (<150 g/day), low- glycemic diet. Continue semaglutide. Assessment & Plan (07/07/2023 8:53 AM CDT): Reviewed most recent labs available. Continue low-carb (<150 g/day), low- glycemic diet. Continue semaglutide -- 1 mg weekly. Assessment & Plan (02/06/2023 10:21 PM FUN HOUSE OPERATOR): Reviewed most recent labs available. Continue low-carb (<150 g/day), low- glycemic diet. Will see if semaglutide is covered. Assessment & Plan (08/12/2022 1:13 PM CDT): She will forward recent labs. Continue current regimen. Assessment & Plan (12/01/2021 4:25 PM FUN HOUSE OPERATOR): Continue low-carb (<150 g/day), low-glycemic diet.Continue Trulicity. [...] labs. Assessment & Plan (10/06/2020 2:59 PM FUN HOUSE OPERATOR): She will forward recent labs. Continue low-carb (<150 g/day), low-glycemic diet. Assessment & Plan (02/02/2020 8:36 PM FUN HOUSE OPERATOR): Check A1c. Irritable bowel syndrome 04/14/2014 Overview [...] 50% Assessment & Plan (12/12/2024 1:29 PM FUN HOUSE OPERATOR): Discussed recent approval of Zepbound for AKANKSHA and that this may be an option if she starts to struggle again with appetite or if weight increases. Immunizations Immunization Administration Dates Next Due Influenza, Trivalent, IM (MDV) 09/02/2009 Pfizer Sars-Cov-2 Bivalent Vaccination (12+ YRS) 09/10/2022 Social History Tobacco Use Types Packs/Day Years [...] on file Legal Sex Female 6:43 PM FUN HOUSE OPERATOR Gender Identity Not on file Sexual Orientation Not on file Last Filed Vital Signs Vital Sign Reading Time Taken Comments Blood Pressure 139/81 03/15/2025 8:22 AM CDT Pulse 63 03/15/2025 8:22 AM CDT Temperature 37 C (98.6 F) 03/15/2025 8:22 AM CDT Respiratory Rate 30 10/09/2024 1:12 PM FUN HOUSE OPERATOR Oxygen Saturation 96% 03/15/2025 8:22 AM CDT Inhaled Oxygen Concentration - - Weight 106.4 kg (234 lb 9.8 oz) 03/15/2025 8:22 AM CDT Height 171.9 cm (5' 7.68 ) 03/15/2025 8:22 AM CD T Body Mass Index 36.01 03/15/2025 8:22 AM CDT Plan of Treatment Not on file Medical Devices Implanted Type Area Package Wrapper Device Identifier Shelf Expiration Date Model / Serial / Lot [employer] A-4750.61 Aptus Trilock [id number] Hole Left Distal Radius Volar Plate - S00 - [id number] Implanted:Qty: 1 on 09/29/2018 by Barrett Bello MD at [facility] [place] Plate Left: Wrist [employer] A-4750.61 / [employer] A-5700.14/1 2.5mm 14mm Cortical Screw Bone Cherrie - S00 - [id number] Implanted:Qty: 1 on 09/29/2018 by Barrett Bello MD at [facility] Screw Left: Wrist [employer] A-5700.14/ [employer] A-5700.13/1 Aptus 2.5mm 13mm Hexadrive 7 Wrist Cortical Screw Bone Titanium - S00 - [id number] Implanted:Qty: 1 on 09/29/2018 by Barrett Bello MD at [facility] [place] Screw Left: Wrist [employer] A-5700.13/ [employer] A-5700.16/1 Aptus 2.5mm 16mm Hexadrive 7 Adaptive Wrist Radius Cortical - S00 - [id number] Implanted:Qty: 1 on 09/29/2018 by Barrett Bello MD at [facility] [place] Screw Left: Wrist [employer] A-5700.16/ [employer] A-5750.18/1 Aptus Trilock 2.5mm 18mm Hexadrive 7 Adaptive Wrist Radius - S00 - [id number] Implanted:Qty: 3 on 09/29/2018 by Barrett Bello MD at [facility] [place] Screw Left: Wrist [employer] A-5750.18/ [employer] A-5750.16/1 2.5mm 16mm Trilock Hexadrive Wrist Radius Screw Bone - S00 - [id number] Implanted:Qty: 2 on 09/29/2018 by Barrett Bello MD at [facility] [place] Screw Left: Wrist [employer] A-5750.16/ [employer] A-5750.18/12 Aptus 2.5mm 20mm Lock Radius Screw Bone Cherrie - S00 - [id number] Implanted:Qty: 1 on 09/29/2018 by Barrett Bello MD at [facility] Screw Left: Wrist [employer] A-5750.20/ Explanted Type Area Package Wrapper Device Identifier Shelf Expiration Date Model / Serial / Lot [employer] A-5700.24 2.5mm 24mm Hexadrive Wrist Cortical Screw Bone - S00 - [id number] Implanted:Qty: 1 Explanted:Qty: 1 on 09/29/2018 by Barrett Bello MD at [facility] Screw Left: Wrist [employer] A-5700.24/ [employer] [id number] Lanre .45in 9in 1 [place] [facility] Wire Fixation - S00 - [id number] Explanted:Qty: 1 on 09/29/2018 by Barrett Bello MD at [facility] Wire Left: Wrist [employer] [id number] S / [employer] [id number] Lanre .062in 9in 1 [place] Wire Fixation - S00 - [id number] Explanted:Qty: 1 on 09/29/2018 by Barrett Bello MD at [facility] Wire Left: Wrist [employer] [id number] / Procedures Procedure Name Priority Date/Time Associated [...] (HCC) LIPID PANEL Routine 01/28/2024 4:26 PM FUN HOUSE OPERATOR Hyperlipidemia, unspecified hyperlipidemia type COLONOSCOPY 08/11/2023 10:52 AM CDT SCREENING MAMMOGRAM BILATERAL W LENCHO Schedule Routine, Read Routine (OP Routine) 11/04/2022 2:07 PM FUN HOUSE OPERATOR Screening mammogram, encounter for DEXA AXIAL SKELETON [...] of Race in Diagnosing Kidney Disease, JASN 2020). The CKD-EPI equation should not be used for patients with unstable renal function and has not been validated in children and those over 70. Current interpretive data was last reviewed 2021. Blood 03/15/2025 9:25 AM CDT 03/15/2025 9:37 AM CDT us Toñito Frank MD LAB BLOOD ORDERABLES Final Result [facility] [address] [facility] [place] [address] * Differential, auto (03/15/2025 9:25 AM CDT) [...] on 2018. Imm gran pct 0.3 % [facility] Comment: Interpretive Data Percent cell count reference ranges are not reported, since discordance with absolute values may lead to misinterpretation of CBC data. Current Interpretive Data was last revised on 2018. Lymphocyte pct 22.9 % [facility] Comment: Interpretive Data Percent cell count reference ranges are not reported, since discordance with absolute values may lead to misinterpretation of CBC data. Current Interpretive Data was last revised on 2018. Monocyte pct 10.3 % [facility] Comment: Interpretive Data Percent cell count reference ranges are not reported, since discordance with absolute values may lead to misinterpretation of CBC data. Current Interpretive Data was last revised on 2018. Eosinophil pct 2.5 % [facility] Comment: Interpretive Data Percent cell count reference ranges are not reported, since discordance with absolute values may lead to misinterpretation of CBC data. Current Interpretive Data was last revised on 2018. Basophil pct 0.5 % [facility] Comment: Interpretive Data Percent cell count reference ranges are not reported, since discordance with absolute values may lead to misinterpretation of CBC data. Current Interpretive Data was last revised on 2018. Blood 03/15/2025 9:25 AM CDT 03/15/2025 9:36 AM CDT us Toñito Frank MD LAB BLOOD ORDERABLES Final Result [facility] [address] [employer] [place] [address] * CBC with auto differential (03/15/2025 9:25 AM CDT) Pathologist [facility] WBC 7.68 3.80 - 9.90 K/cumm Hgb 13.5 11.9 - 15.5 g/dL [facility] Hct 41.4 35.6 - 45.5 % [facility] Plt 190 150 - 400 K/cumm [facility] MPV 10.4 9.1 - 12.3 fL [facility] RBC 4.37 3.90 - 5.20 M/cumm [facility] MCV 94.7 81.3 - 96.4 fL [facility] MCH 30.9 27.1 - 33.3 pg [facility] MCHC 32.6 32.3 - 35.7 g/dL [facility] RDW CV 12.2 11.1 - 14.9 % [facility] RDW SD 42.8 35.7 - 48.1 fL [facility] NRBC abs 0.00 0.00 - 0.01 K/cumm [facility] Blood 03/15/2025 9:25 AM CDT 03/15/2025 9:36 AM CDT Toñito Frank MD LAB BLOOD ORDERABLES Final Result Performing Organization Address [facility] Co de Phone Number [facility] [address] [employer] [place] [address] * Protime-INR (03/15/2025 9:25 AM CDT) PT 10.3 9.7 - 13.0 sec INR 0.95 0.90 - 1.20 [facility] Comment: Interpretive data Oral anticoagulant therapeutic ranges: Venous thromboembolism prophylaxis or treatment: 2.0-3.0 CARDIOLOGY Standard range: 2.0-3.0 High-intensity range: 2.5-3.5 Refer to indication-specific guidelines for appropriate target ranges for prosthetic heart valve replacement. Current interpretive data was last revised on 2019. Blood 03/15/2025 9:25 AM CDT 03/15/2025 9:37 AM CDT Toñito Frank MD LAB BLOOD ORDERABLES Final Result Performing Organization Address [facility] Co de Phone Number [facility] [id number] [employer] [place] [address] * (ABNORMAL) Comprehensive metabolic panel (03/15/2025 9:25 AM CDT) Sodium 139 135 - 145 mmol/L Potassium, pl 4.0 3.3 - 4.9 mmol/L [facility] Chloride 102 97 - 110 mmol/L [facility] CO2 28 22 - 32 mmol/L [facility] Anion gap 9 2 - 15 mmol/L [facility] BUN 30(H) 6 - 25 mg/dL [facility] Creatinine 1.50(H) 0.60 - 1.10 mg/dL [facility] Glucose 98 70 - 199 mg/dL [facility] Comment: Interpretive Data Fasting glucose >/= 126 [...] classification and Diagnosis of Diabetes Diabetes Care 202; 46: S19-S40. Current interpretive data was last revised 2022. Calcium 9.7 8.5 - 10.3 mg/dL [facility] Bilirubin, total 0.5 0.1 - 1.2 mg/dL [facility] Protein, pl 7.4 6.5 - 8.5 g/dL [facility] Albumin 4.3 3.5 - 5.0 g/dL [facility] Alk phos 72 40 - 130 Units/L [facility] ALT 17 7 - 45 Units/L [facility] AST 23 10 - 45 Units/L [facility] Blood 03/15/2025 9:25 AM CDT 03/15/2025 9:37 AM CDT Toñito Frank MD LAB BLOOD ORDERABLES Final Result [facility] [address] [employer]. [place] [address] * Hemoglobin A1c (08/04/2024 2:56 PM CDT) Hgb A1C 5.1 4.0 - 5.6 % Estimated Average Glucose 100 mg/dL [facility] Comment: The ADA recommends reporting an estimated Average Glucose (eAG) with all Hemoglobin A1c results using the equation derived from a study of 507 normal and diabetic adults. Minority populations were underrepresented and children were not included. (Diabetes Care 31:3832-4074, 2008). The eAG is not equivalent to a fasting glucose. Blood 08/04/2024 2:56 PM CDT 08/04/2024 3:12 PM CDT us Gilma Arceo MD LAB BLOOD ORDERABLES Fin al Result [facility] [address] [employer]. [place] [address] * Lipid panel (01/28/2024 4:26 PM FUN HOUSE OPERATOR) Cholesterol 146 30 - 199 mg/dL [facility] Comment: Interpretive Data Ages [...] on 2018. HDL 44 >=40 mg/dL [facility] Comment: Interpretive Data Ages [...] on 2018. LDL, calculated 87 <=129 mg/dL [facility] Comment: Interpretive Data Ages [...] 3 [facility] Blood 01/28/2024 4:26 PM FUN HOUSE OPERATOR 01/28/2024 4:43 PM FUN HOUSE OPERATOR us Gilma Arceo MD LAB BLOOD ORDERABLES Fin al Result [facility] [address] [employer]. [place] [address] * COLONOSCOPY (08/11/2023 10:52 AM CDT) Anatomical Region Laterality Modality Other Narrative Procedure Note jJ Hwang MD - 08/11/2023 10:52 AM CDT ENDOSCOPY LAB Patient Name: Marichuy Romano Procedure Date: 08/11/2023 10:52 AM Admit Type: Outpatient Room: [facility] Date of : 1955 Instrument Name: [id number] [...] my nurses in the GI office at [phone] ([phone]) for your final pathology results in7 days. Attending Participation: I personally performed the entire procedure. Electronically signed by Jj Hwang MD Jj Hwang M.D. 08/11/2023 11:18:16 AM This document was signed electronically. Number of Addenda: 0 Note Initiated On: 08/11/2023 10:52 AM Scope Withdrawal Time: 0 hours 6 minutes 12 seconds Scope In: 11:04:40 AM Scope Out: 11:14:15 AM Jj Hwang MD ENDOSCOPY PROCEDUR ES Final Result * Screening Mammogram Bilateral W Lencho (11/04/2022 2:07 PM FUN HOUSE OPERATOR) Anatomical Region Laterality Modality Breast Bilateral Mammography Narrative 11/05/2022 1:43 PM FUN HOUSE OPERATOR Mammogram Technique: Bilateral Digital Breast Tomosynthesis, Bilateral C-view 2D Screening mammogram. Views obtained: bilateral craniocaudal and bilateral mediolateral oblique. Computer Aided Detection was performed. Mammogram Findings: The present examination has been compared to prior imaging studies performed at [facility] on 11/10/2013, 06/30/2016 and 06/13/2019. There are [...] to prior imaging studies performed at [facility] on 11/10/2013, 06/30/2016 and 06/13/2019. There are [...] it. Electronically signed by: Se Baldwin M.D. us Cr Franklin MD IMG DXA PROCEDURES Final R esult * Serum Hepatitis C ab (06/18/2016 4:10 AM CDT) HCV ab Negative NEG CDR HISTOR ICAL RESULTS Comment: Interpretive Data Positive results should be confirmed by a molecular method. If positive, a second separately collected sample should be submitted for Hepatitis C Virus (HCV) RNA Detection and Quantitation by Real-Time Reverse Program Management Analyst-PCR (RT-PCR). Current interpretive data was last revised on 2016. Serum 06/18/2016 4:10 AM CDT Narrative CDR HISTORICAL RESULTS - 06/19/2016 8:01 AM CDT Test performed at [facility], [address] [facility],, [place], [place], [place], [address]. us Toñito Frank MD LAB BLOOD ORDERABLES Final Result CDR HISTORICAL RESULTS from Last 3 Months or Most Recently Relevant to Health [place] [address] [employer] MEDICARE [employer] OPEN ACCESS [employer] [facility] MEDICARE [facility] [place] [address] [employer] MEDICARE * Guarantor: A PHASE 3, DOUBLE-BLIND, RANDOMIZED, LONG-TERM, PLACEBO-CONTROLLED, MULTICENTER STUDY EVALUATING THE SAFETY AND EFFICACY OF OBETICHOLIC ACID IN SUBJECTS WITH Account Type Relation to Patient Date of Phone Billing Address Research [employer]NA MEDICARE [facility] Address: [facility] [address] [place] [address] Advance Directives For more information, please contact: [phone] * Full Code (Latest Code Status on [...] 8:38 AM 06/27/2019 2:16 PM Care Teams Popcorn Vendor Relationship Specialty Start Date End Date Cr Franklin MD [address] [address] PCP - General 03/30/17 Toñito Frank MD [address] [address] Referring Physician Transplant Hepatology 06/16/20
--- OUTSIDE RECORDS SUMMARY | 2025-04-05 09:05 | XMS_ITS | Encounter Summary ---
Author Organization [facility] Address [address] [place] [address] Phone Care Team Providers Care Submarine Operator Name Role Phone Cr Franklin MD Primary Care Provider [phone]- [phone] Toñito Frank MD Unavailable [phone] Encounter Details Date Type Department Care Team (Latest Contact Info) Description 08/13/2021 Orders Only [facility] WGT Scanning, Provider Social History Tobacco Use Types Packs/Day Years Used Date Smoking Tobacco: Never Smokeless Tobacco: Never Alcohol Use Standard Drinks/Week Comments Yes 0 (1 standard drink = 0.6 oz pur e alcohol) rare Comments No Sex and Gender Information Value Date Recorded Sex Assigned at Not on file Legal Sex Female 6:43 PM PASTRYCOOK'S ASSISTANT Gender Identity Not on file Sexual Orientation Not on file documented as of this encounter Plan of Treatment Not on file documented as of this encounter Procedures Procedure Name Priority Date/Time Associated Diagnosis Comments SCAN - LABS 08/13/2021 documented in this encounter Results * SCAN - LABS (08/13/2021) us Provider Scanning Final Result documented in this encounter Visit Diagnoses Not on filedocumented in this encounter Care Teams Submarine Operator Relationship Specialty Start Date End Date Cr Franklin MD [address] [facility] [address] [place], [place] [id number] PCP - General 03/30/17 Toñito Frank MD [address] [place] [address] Referring Physician Transplant Hepatology 06/16/20 documented as of this encounter
--- OUTSIDE RECORDS SUMMARY | 2025-04-05 09:05 | XMS_ITS | Encounter Summary ---
Author Organization [facility] Address [address] [place] [address] Phone Care Team Providers Care Cold Mill Operator Name Role Phone Cr Franklin MD Primary Care Provider [phone] Toñito Frank MD Unavailable [phone] Encounter Details Date Type Department Care Team (Late st Contact Info) Description 09/04/2020 Orders Only [facility] GASTROENTEROLOGY Scanning, Provider Social History Tobacco Use Types Packs/Day Years Used Date Smoking Tobacco: Never Smokeless Tobacco: Never Alcohol Use Standard Drinks/Week Comments Yes 0 (1 standard drink = 0.6 oz pur e alcohol) rare Comments No Sex and Gender Information Value Date Recorded Sex Assigned at Not on file Legal Sex Female 6:43 PM DATABASE TECHNICIAN Gender Identity Not on file Sexual Orientation Not on file documented as of this encounter Plan of Treatment Not on file documented as of this encounter Procedures Procedure Name Priority Date/Time Associated Diagnosis Comments SCAN - RADIOLOGY/IMAGING 09/04/2020 SCAN - LABS 09/04/2020 documented in this encounter Results * SCAN - LABS (09/04/2020) us Provider Scanning Final Result * SCAN - RADIOLOGY/IMAGING (09/04/2020) Anatomical Region Laterality Modality Other us Provider Scanning Edited Result - Final documented in this encounter Visit Diagnoses Not on filedocumented in this encounter Care Teams Cold Mill Operator Relationship Specialty Start Date End Date Cr Franklin MD [address] [place] [address] PCP - General 03/30/17 Toñito Frank MD [address] [facility] [address] [place] [address] Referring Physician Transplant Hepatology 06/16/20 documented as of this encounter
--- OUTSIDE RECORDS SUMMARY | 2025-04-05 09:05 | XMS_ITS | Encounter Summary ---
Author Organization [facility] Address [address] [place] [address] Phone Care Team Providers Care Customs Officer Name Role Phone Cr Franklin MD Primary Care Provider [phone] Toñito Frank MD Unavailable [phone] Encounter Details Date Type Department Care Team (Latest Contact Info) Description 06/08/2019 Orders Only [facility] WGT Scanning, Provider Social History Tobacco Use Types Packs/Day Years Used Date Smoking Tobacco: Never Smokeless Tobacco: Never Alcohol Use Standard Drinks/Week Comments Yes 0 (1 standard drink = 0.6 oz pur e alcohol) rare Comments No Sex and Gender Information Value Date Recorded Sex Assigned at Not on file 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 Gender Identity Not on file Sexual Orientation Not on file documented as of this encounter Plan of Treatment Not on file documented as of this encounter Procedures Procedure Name Priority Date/Time Associated Diagnosis Comments SCAN - LABS 06/08/2019 documented in this encounter Results * SCAN - LABS (06/08/2019) us Provider Scanning Final Result documented in this encounter Visit Diagnoses Not on filedocumented in this encounter Care Teams Customs Officer Relationship Specialty Start Date End Date Cr Franklin MD [address] [place], [place] [id number] PCP - General 03/30/17 Toñito Frank MD [address] [place] [address] Referring Physician Transplant Hepatology 06/16/20 documented as of this encounter
--- OUTSIDE RECORDS SUMMARY | 2025-04-05 09:05 | XMS_ITS | Encounter Summary ---
Author Organization [facility] Address [address] [place] [address] Phone Care Team Providers Care Medical Consultant Name Role Phone Cr Franklin MD Primary Care Provider [phone]- [phone] Toñito Frank MD Unavailable [phone] Encounter Details Date Type Department Care Team (Latest Contact Info) Description 12/16/2022 Orders Only [facility] WGT Scanning, Provider Social History Tobacco Use Types Packs/Day Years Used Date Smoking Tobacco: Never Smokeless Tobacco: Never Alcohol Use Standard Drinks/Week Comments Yes 0 (1 standard drink = 0.6 oz pur e alcohol) rare Comments No Sex and Gender Information Value Date Recorded Sex Assigned at Not on file 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 Gender Identity Not on file Sexual Orientation Not on file documented as of this encounter Plan of Treatment Not on file documented as of this encounter Procedures Procedure Name Priority Date/Time Associated Diagnosis Comments SCAN - LABS 12/16/2022 documented in this encounter Results * SCAN - LABS (12/16/2022) us Provider Scanning Final Result documented in this encounter Visit Diagnoses Not on filedocumented in this encounter Care Teams Medical Consultant Relationship Specialty Start Date End Date Cr Franklin MD [address] [facility] 120 [place], [place] [id number] PCP - General 03/30/17 Toñito Frank MD [address] [place] [address] Referring Physician Transplant Hepatology 06/16/20 documented as of this encounter
[2025-04-05 09:14] LABS: Hematocrit 38.9 % (37.0-47.0); Hemoglobin 12.4 g/dL (12.0-15.0); Mean Corpuscular HGB Conc 31.9 g/dl (32-36); Mean Corpuscular Hemoglobin 30.4 pg (26-34); Mean Corpuscular Volume 95.3 fl (80-100); Mean Platelet Volume 10.6 fl (7.4-10.4); Platelet Count Result 166 k/mm3 (150-375); Red Blood Count 4.08 M/mm3 (4.2-5.4); Red Cell Distribution Width 12.3 % (11.5-14.5); White Blood Count 7.3 K/mm3 (4.5-10.0)
[2025-04-05 09:23] LABS: Albumin Level 4.4 g/dL (3.5-5.1); Anion Gap 8 mmol/L (4-12); Blood Urea Nitrogen 45 mg/dL (7-17); Calcium 9.7 mg/dL (8.4-10.2); Carbon Dioxide 30 mmol/L (22-30); Chloride 105 mmol/L (98-107); Estimated Glomerular Filt Rate 29; Glucose 88 mg/dL (65-110); Phosphorus 4.2 mg/dL (2.5-4.5); Potassium 4.1 mmol/L (3.4-5.0); Sodium 143 mmol/L (137-145)
[2025-04-05 09:33] LABS: Parathyroid Intact 34.1 pg/mL (14.5-75.2)
[2025-04-05 09:45] LABS: Creatinine Urine 115.6 mg/dL; Total Protein Urine Random 15 mg/dL; Ur Ttl Prot Creatinine Ratio 0.13 mg/mg (0-0.20)
== END 2025-04-05 08:55 | disposition home or self-care (01) ==
LOC: ANHLAB 08:55
PROVIDERS: PCP Internal Medicine; Visit Provider Internal Medicine Nephrology
DX: N18.32 Chronic kidney disease, stage 3b (principal)
CPT/HCPCS: 36415; 80069; 82570; 83970; 84156; 85027

== ENCOUNTER 2025-10-05 10:00 | Outpatient (CLI) | payer MEDICARE, SELFPAY ==
--- OUTSIDE RECORDS SUMMARY | 2025-10-05 10:46 | XMS_ITS | Encounter Summary ---
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
--- OUTSIDE RECORDS SUMMARY | 2025-10-05 10:46 | XMS_ITS | Encounter Summary ---
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 Gender Identity Not on file Sexual Orientation Not on file documented as of this encounter Functional Status * BP Location Answer Date of Assessment Author Left arm 06/08/2019 10:44 AM MICHAELT Saleem Medina RMA * BP Location Answer Date of Assessment Author Left arm 06/08/2019 10:44 AM MICHAELT Saleem Medina RMA documented as of this encounter Plan of Treatment Not on file documented as of this encounter Procedures Procedure Name Priority Date/Time Associated Diagnosis Comments SCAN - LABS 06/08/2019 documented in this encounter Results * SCAN - LABS (06/08/2019) us Provider Scanning Final Result documented in this encounter Visit Diagnoses Not on filedocumented in this encounter Care Teams Staff Home Therapy Rn Relationship Specialty Start Date End Date Cr Franklin MD [address] [place] [address] PCP - General 03/30/17 04/05/25 Jonatan Fu DO [address] [facility] [address] [place] [address] PCP - General Internal Medicine 04/06/25 Toñito Frank MD [address] [facility] [address] [place] [address] Referring Physician Transplant Hepatology 06/16/20 documented as of this encounter
--- OUTSIDE RECORDS SUMMARY | 2025-10-05 10:46 | XMS_ITS | Encounter Summary ---
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
--- OUTSIDE RECORDS SUMMARY | 2025-10-05 10:46 | XMS_ITS | Encounter Summary ---
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
--- OUTSIDE RECORDS SUMMARY | 2025-10-05 10:46 | XMS_ITS | Encounter Summary ---
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
--- OUTSIDE RECORDS SUMMARY | 2025-10-05 10:46 | XMS_ITS | Encounter Summary ---
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
--- OUTSIDE RECORDS SUMMARY | 2025-10-05 10:46 | XMS_ITS | Clinical Summary ---
Author Organization [facility] Address [address] [place] [address] Care Team Providers Care Field Crop Ii Farmworker Name Role Phone Cr Franklin DO Primary Care Provider [phone] Source Comments [facility],non-owned Affiliates and Associated Physician Practices is amultiple site organization consisting of ambulatory clinics and hospital sitesin [place], [place], [place] and [place]. This disclosure is being madepursuant to the Care Everywhere program and may not contain all information available regarding this patient. 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
--- OUTSIDE RECORDS SUMMARY | 2025-10-05 10:46 | XMS_ITS | Clinical Summary ---
Author Organization [facility] Address [address] [place] [address] Phone Care Team Providers Care Senior Investment Manager Name Role Phone Cr Franklin DO Primary Care Provider [phone] Allergies Active Allergy Reactions Criticality Noted Date [...] Fish Oil-Cholecalcif rossana (FISH OIL + D3) 9191-8860 MG-UNIT capsule 1 daily 0 11/29/2018 Act [...] on file Legal Sex Female 7:22 AM MST Gender Identity Not on file Sexual Orientation [...] 1:04 PM CDT Height 177.8 cm (5' 10) 08/17/2022 1:04 PM CDT Body Mass Index 37.88 08/17/2022 1:04 PM CDT Plan of Treatment Health Maintenance Due Date Last Done Comments Pneumococcal PPSV23/PCV13 65 + Years / Low and Medium Risk (2 of 3 - PCV) 09/28/2020 09/28/2019, 08/18/2018 Influenza Vaccine (#1) 2025 , 09/04/2020, 08/18/2018, Additional history exists Insurance [employer] MEDICARE Care Teams Senior Investment Manager Relationship Specialty Start Date End Date Cr Frnaklin DO [address] [id number] PCP - General Internal Medicine 05/17/19
--- OUTSIDE RECORDS SUMMARY | 2025-10-05 10:46 | XMS_ITS | Encounter Summary ---
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
--- OUTSIDE RECORDS SUMMARY | 2025-10-05 10:46 | XMS_ITS | Clinical Summary ---
Author Organization [facility] Address [address] [place] [address] Care Team Providers Care I&C Tech Name Role Phone Toñito Frank MD Unavailable [phone] Jonatan Fu DO Primary Care Provider [phone] Allergies Active Allergy Reactions Criticality Noted Date Comments Atorvastatin Muscle pain Medium Penicillins Hives Medium Septa Rash Medium septra Sulfamethoxazole Unknown Low Unknown to Pt. Trimethoprim Unknown Low Unknown to Pt. Medications polycarbophil (FIBERCON) 625 mg tablet 01/03/20 09 Active magnesium oxide (MAG-OX) 400 mg (241.3 mg elemental) tabletIndicati ons:hypomagnes emia Active metoprolol (LOPRESSOR) 25 mg tablet 2 (two) times a day. Active cetirizine (ZyrTEC) 10 mg tablet as needed 01/03/20 09 Active fluticasone (FLONASE) 50 mcg/actuation nasal spray as needed 05/28/20 18 Active ONETOUCH VERIO strip 06/19/20 18 Active levothyroxine (SYNTHROID, LEVOTHROID) 150 mcg tablet Take 1 tablet (150 mcg total) by mouth daily 3 09/11/20 18 Active multivitamin-C y-czyc-krkerdi s tablet Active pravastatin (PRAVACHOL) 20 mg tablet Take 1 tablet (20 mg total) by mouth daily 07/07/20 20 Active LORazepam (ATIVAN) 0.5 mg tablet Take 1 tablet (0.5 mg total) by mouth as needed 08/13/20 21 Active omega 5-oxt-pyh-fish oil (Fish OiL) 100-160-1,000 mg capsule Take by mouth daily 11/29/19 19 Active turmeric/turme linda ext/pepr ext (turmeric-turm silva ext-pepper) 500-3 mg capsule Take by mouth daily 11/29/19 19 Active PHENobarbital- hyoscyaamine-a tropine-scopol oamine () 16.2-0.1037 -0.0194 mg per tabletIndicati ons:Irritable Bowel Syndrome Take 1 tablet by mouth 4 (four) times a day as needed for heartburn 30 tablet 11 08/20/20 22 Active Farxiga 10 mg tablet Take 1 tablet (10 mg total) by mouth daily 08/07/20 23 Active hydroCHLOROthi azide (HYDRODIURIL) 25 mg tablet Take 2 tablets (50 mg total) by mouth daily 12/05/19 24 Active irbesartan (AVAPRO) 300 mg tablet Take 1 tablet (300 mg total) by mouth daily 11/27/20 23 Active Lumigan 0.01 % ophthalmic drops 08/04/20 24 Active hyoscyamine (LEVSIN) 0.125 mg SL tablet Take 1 tablet (0.125 mg total) by mouth every 4 (four) hours as needed for cramping for cramping 300 tablet 5 03/05/20 25 Active gabapentin (NEURONTIN) 100 mg capsule TAKE 1-2 CAPSULE BY MOUTH EVERY EVENING 1 HR BEFORE SYMPTOM ONSET 60 capsule 6 04/25/20 25 Active naltrexone (DEPADE) 50 mg tablet TAKE 1 TABLET BY MOUTH EVERY DAY 90 tablet 1 07/31/20 25 Active tirzepatide, weight loss, (Zepbound) 7.5 mg/0.5 mL pen injector Inject 0.5 mL (7.5 mg total) under the skin every 7 days 2 mL 08/17/[address] (PROTONIX) 40 mg EC tablet Take 1 tablet (40 mg total) by mouth daily 90 tablet 3 09/20/20 25 Active buPROPion SR (WELLBUTRIN SR) 150 mg 12 hr tablet TAKE 1 TABLET BY MOUTH TWICE A DAY 180 tablet 10/01/[address] (PROTONIX) 40 mg EC tablet Take 1 tablet (40 mg total) by mouth daily 30 tablet 11 10/09/20 24 025 Discontinued buPROPion SR (WELLBUTRIN SR) 150 mg 12 hr tablet TAKE 1 TABLET BY MOUTH TWICE A DAY 180 tablet 04/24/[address] (PROTONIX) 40 mg EC tablet TAKE 1 TABLET BY MOUTH EVERY DAY 90 tablet 09/10/20 25 025 Discontinued(Re order) Active Problems Problem Noted Date Diagnosed Date Esophageal dysphagia 09/19/2024 Encounter for colonoscopy due to history of colo dread polyp 06/14/2020 Overview (06/14/2020): Added automatically from request for surgery [id number] Pure hypercholesterolemia 12/14/2019 Encounter for colonoscopy du e to history of adenomatous colonic polyps 05/18/2019 Overview (05/18/2019): Added automatically from request for surgery [id number] Closed fracture of lower end of left radius with routine healing 09/28/2018 Overview (09/28/2018): Added automatically from request for surgery [id number] Essential (primary) hypertension 08/29/2018 Assessment & Plan [...] 06/17/2018 Assessment & Plan (10/03/2023 9:19 PM MOLDER BENCH): Reviewed calorie restriction based on BMR as [...] phone. Assessment & Plan (02/06/2023 10:10 PM MOLDER BENCH): Reviewed calorie restriction based on BMR as [...] phone. Assessment & Plan (12/01/2021 4:22 PM MOLDER BENCH): Reviewed calorie restriction based on BMR as [...] refocus. Assessment & Plan (10/06/2020 2:58 PM MOLDER BENCH): Reviewed calorie restriction based on BMR as previously detailed. Reviewed recommendation/goal of >/= 150 minutes/week moderate-intensity aerobic exercise. Asked to keep detailed food diary for at least 1 week and bring to next visit and/or continue tracking on phone. Assessment & Plan (02/02/2020 8:30 PM MOLDER BENCH): Reviewed calorie restriction based on BMR as previously detailed. Reviewed recommendation/goal of >/= 150 minutes/week moderate-intensity aerobic exercise. Assessment & Plan (11/04/2019 10:55 AM MOLDER BENCH): Reviewed calorie restriction based on BMR as [...] exercise. Assessment & Plan (12/01/2018 1:18 PM MOLDER BENCH): Reviewed calorie restriction based on BMR as [...] 06/17/2018 Assessment & Plan (10/03/2023 9:23 PM MOLDER BENCH): Reviewed study labs -- scanned. Assessment & Plan (07/29/2021 10:34 AM CDT): She will forward lab results. Assessment & Plan (11/04/2019 10:56 AM MOLDER BENCH): Continue low-carb (<150 g/day), low-glycemic diet. Continue metformin. Assessment & Plan (06/21/2019 11:06 PM CDT): Reviewed recent labs. Continue low-carb (<150 g/day), low-glycemic diet. Continue metformin. Assessment & Plan (03/18/2019 3:16 PM CDT): Continue low-carb (<150 g/day), low-glycemic diet. Reviewed importance of adequate protein intake of 1-1.2 g/kg IBW/day. Reviewed recent labs from [facility] study -- scanned. Assessment & Plan (12/01/2018 1:21 PM MOLDER BENCH): Continue low-carb (<150 g/day), low-glycemic diet. Continue [...] 06/17/2018 Assessment & Plan (10/03/2023 9:22 PM MOLDER BENCH): Obesity is improving. Plan: Diet interventions: as [...] Other: Assessment & Plan (02/06/2023 10:16 PM MOLDER BENCH): Obesity is worse recently, but overall remains improved.. Plan: Diet interventions: as noted.., Regular aerobic exercise program discussed. and Medication as prescribed. Assessment & Plan (08/12/2022 1:22 PM CDT): Obesity is improving. Plan: Diet interventions: as noted.., Regular aerobic exercise program discussed. and medications as prescribed. Assessment & Plan (12/01/2021 4:27 PM MOLDER BENCH): Obesity is improving with treatment. Diet interventions: [...] ordered. Assessment & Plan (10/06/2020 3:02 PM MOLDER BENCH): Obesity is worsening. Recommended counseling. Diet interventions: as noted. Regular aerobic exercise program discussed. Pharmacotherapy as ordered. Discussed options and will add naltrexone to the bupropion she is already taking. Discussed risks, benefits, alternatives, potential side effects. Assessment & Plan (02/02/2020 8:39 PM MOLDER BENCH): Obesity is improving with treatment. Behavioral treatment: have recommended counsling. Diet interventions: as noted. Regular aerobic exercise program discussed. Pharmacotherapy as ordered. Assessment & Plan (11/04/2019 10:57 AM MOLDER BENCH): Obesity is improving with treatment. Diet interventions: [...] ordered. Assessment & Plan (12/01/2018 1:25 PM MOLDER BENCH): Obesity is improving with treatment. Diet interventions: [...] complication Assessment & Plan (10/03/2023 9:19 PM MOLDER BENCH): Reviewed most recent labs available. Continue low-carb (<150 g/day), low- glycemic diet. Continue semaglutide. Assessment & Plan (07/07/2023 8:53 AM CDT): Reviewed most recent labs available. Continue low-carb (<150 g/day), low- glycemic diet. Continue semaglutide -- 1 mg weekly. Assessment & Plan (02/06/2023 10:21 PM MOLDER BENCH): Reviewed most recent labs available. Continue low-carb (<150 g/day), low- glycemic diet. Will see if semaglutide is covered. Assessment & Plan (08/12/2022 1:13 PM CDT): She will forward recent labs. Continue current regimen. Assessment & Plan (12/01/2021 4:25 PM MOLDER BENCH): Continue low-carb (<150 g/day), low-glycemic diet.Continue Trulicity. [...] labs. Assessment & Plan (10/06/2020 2:59 PM MOLDER BENCH): She will forward recent labs. Continue low-carb (<150 g/day), low-glycemic diet. Assessment & Plan (02/02/2020 8:36 PM MOLDER BENCH): Check A1c. Irritable bowel syndrome 04/14/2014 Overview [...] with O2 pietro 50% Assessment & Plan (04/30/2025 9:16 PM CDT): Reviewed sleep study. Excellent candidate for Zepbound. Assessment & Plan (12/12/2024 1:29 PM MOLDER BENCH): Discussed recent approval of Zepbound for AKANKSHA and that this may be an option if she starts to struggle again with appetite or if weight increases. Encounters Date Type Department Care Team Description 09/20/2025 10:45 AM CDT Office Visit [facility] Medicine Gastroenterology [address] [facility] [address] [place] [address] Chanelle Serrato MD Irritable bowel syndrome with constipation (Primary Dx); Gastroesophageal reflux disease with esophagitis without hemorrhage; BMI 35.0-35.9,adult 08/21/2025 Documentation [facility] Medicine Neuro Sleep [address] [place] [phone] Hanane Talavera RN 08/20/2025 3:30 PM CDT Office Visit [facility] Neuro Sleep [address] [facility] 6th [address] [place] [address] Lizabeth Carney MD PhD AKANKSHA (obstructive sleep apnea) (Primary Dx); RLS (restless legs syndrome); Circadian rhythm sleep disorder, delayed sleep phase type; Chronic insomnia 08/17/2025 2:20 PM CDT Office Visit [facility] Metabolic Weight Management [address] [facility] [address], [address] [place] [address] Gilma Arceo MD Weight loss counseling, encounter for (Primary Dx); Type 2 diabetes mellitus without complication, without long-term current use of insulin (HCC); Class 3 severe obesity due to excess calories with serious comorbidity and body mass index (BMI) of 40.0 to 44.9 in adult from Last 3 Months Immunizations Immunization Administration [...] LIVER 09/11/2020 N/A POLYPECTOMY UPPER GASTROINTESTINAL ENDOSCOPY BIOPSY LIVER 04/06/2025 N/A Medical History Medical History Date Comments Hyperlipidemia Hypertension Irritable bowel syndrome GERD (gastroesophageal reflux disease) Type 2 diabetes mellitus 2014 Hypothyroidism Arthritis Sinusitis Sleep apnea Colon polyp Chronic constipation Chronic diarrhea Liver disease fatty liver Family History Medical History Relation Name Comments Hypertension Brother 1 Family history of hypertension - (Added by TW Conv) Colon polyps Brother 2 Hypertension Brother 2 Family history of hypertension - (Added by TW Conv) Sleep apnea Brother 2 Diabetes Brother 3 Family history of diabetes mellitus - (Added by TW Conv) Diabetes Brother 4 Family history of diabetes mellitus - (Added by TW Conv) Sleep apnea Brother 4 Diabetes Father Family history of diabetes mellitus - (Added by TW Conv) Hypertension Father Family history of hypertension - (Added by TW Conv) Colon polyps Mother Diabetes Mother Family history of diabetes mellitus - (Added by TW Conv) Hypertension Mother Family history of hypertension - (Added by TW Conv) Relation Name Status Comments Brother 1 Other Brother 2 Brother 3 Other Brother 4 Father Mother Social History Tobacco Use Types Packs/Day Years Used Date Smoking Tobacco: Never Smokeless Tobacco: Never Tobacco Cessation:Counseling Given: Not Answered Alcohol Use Standard Drinks/Week Comments Yes 0 (1 standard drink = 0.6 oz pur e alcohol) rare AUDIT-C Answer Date Recorded Q1: How often do you have a drink containing alc ohol? Monthly or less 08/17/2025 Average Number of Drinks Not on file 025 Frequency of Binge Drinking Not on file 07/30 Personal Safety Answer Date Recorded Have you ever been in or are you currently in a harmful physical or emotional relationship or is someone making you feel afraid or unsafe? Denies 10/09/2024 Comments No Sex and Gender Information Value Date Recorded Sex Assigned at Not on file Legal Sex Female 6:43 PM MOLDER BENCH Gender Identity Not on file Sexual Orientation Not on file Obstetrics History Para Term AB IAB SAB Ectopic Multiple Livin g Live Births 0 0 0 0 0 0 0 0 0 0 0 Last Filed Vital Signs Vital Sign Reading Time Taken Comments Blood Pressure 158/56 09/20/2025 10:48 AM CDT Pulse 65 09/20/2025 10:48 AM CDT Temperature 36.4 C (97.5 F) 09/20/2025 10:48 AM CDT Respiratory Rate 16 04/06/2025 8:30 AM CDT Oxygen Saturation 98% 08/20/2025 3:17 PM CDT Inhaled Oxygen Concentration - - Weight 104.9 kg (231 lb 3.2 oz) 025 10:48 AM CDT Height 172.7 cm (5' 8) 09/20/2025 10:4 8 AM CDT Body Mass Index 35.15 09/20/2025 10:48 AM CDT Plan of Treatment Health Maintenance Due Date Last Done Comments Albumin Creatinine Ratio, Urine 1955 Depression Screening 1955 Dilated Eye Exam 1955 Foot Exam 1955 Hepatitis B Screening 1971 Zoster Vaccine (2 of 3) 04/17/2015 02/20/2015 Well Visit 65+ 05/10/2019 05/10/2018 Breast Cancer Screening-Mammogram 11/04/2023 11/04/2022, 06/13/2019, 06/30/2016, Additional history exists Osteoporosis Screening-Bone Density Scan 03/10/2024 03/10/2022 Lipid Panel 01/27/2025 01/28/2024 Covid-19 Vaccine (2 6 season) 2025 09/10/2022, 12/02/2021, 02/10/2021, Additional history exists Influenza Vaccine (#1) 2025 , 09/04/2020, 09/28/2019, Additional history exists DTaP/Tdap/Td Vaccine (2 - Td or Tdap) 08/12/2025 08/12/2015 Hemoglobin A1C 10/28/2025 04/27/2025, 09/0 04/2024, 01/28/2024 eGFR 03/15/2026 03/15/2025, 09/0 04/2024, 01/28/2024, Additional history exists Fall Risk Assessment 04/06/2026 04/06/2025 Colon Cancer Screening-Colonoscopy 08/11/2033 08/11/2023, 07/05/2020, 06/27/2019, Additional history exists Hepatitis C Screening Completed 06/18/2016 Pneumococcal vaccine 65+ Completed 019, 09/28/2019, 08/18/2018 Colon Cancer Screening-CT Colonography Discontinued 08/11/2023, 07/05/2020, 06/27/2019, Additional history exists Colon Cancer Screening-DNA Stool Discontinued 08/11/2023, 07/05/2020, 06/27/2019, Additional history exists Colon Cancer Screening-FIT Discontinued 08/11, 07/05/2020, 06/27/2019, Additional history exists Colon Cancer Screening-Sigmoidoscopy Discontinued 08/11/2023, 07/05/2020, 06/27/2019, Additional history exists Medical Devices Implanted Type Area Ammunition Assembly Laborer Device Identifier Shelf Expiration Date Model / Serial / Lot [employer] A-4750.61 Aptus Trilock [id number] Hole Left Distal Radius Volar Plate - S00 - [id number] Implanted:Qty: 1 on 09/29/2018 by Barrett Bello MD at [facility] Plate Left: Wrist [employer] A-4750.61 / [employer] A-5700.14/1 2.5mm 14mm Cortical Screw Bone Cherrie - S00 - [id number] Implanted:Qty: 1 on 09/29/2018 by Barrett Bello MD at [facility] Screw Left: Wrist [employer] A-5700.14/ [employer] A-5700.13/1 Aptus 2.5mm 13mm Hexadrive 7 Wrist Cortical Screw Bone Titanium - S00 - [id number] Implanted:Qty: 1 on 09/29/2018 by Barrett Bello MD at [facility] Screw Left: Wrist [employer] A-5700.13/ [employer] A-5700.16/1 Aptus 2.5mm 16mm Hexadrive 7 Adaptive Wrist Radius Cortical - S00 - [id number] Implanted:Qty: 1 on 09/29/2018 by Barrett Bello MD at [facility] Screw Left: Wrist [employer] A-5700.16/ [employer] A-5750.18/1 Aptus Trilock 2.5mm 18mm Hexadrive 7 Adaptive Wrist Radius - S00 - [id number] Implanted:Qty: 3 on 09/29/2018 by Barrett Bello MD at [facility] Screw Left: Wrist [employer] A-5750.18/ [employer] A-5750.16/1 2.5mm 16mm Trilock Hexadrive Wrist Radius Screw Bone - S00 - [id number] Implanted:Qty: 2 on 09/29/2018 by Barrett Bello MD at [facility] Screw Left: Wrist [employer] A-5750.16/ [employer] A-5750.20/1 Aptus 2.5mm 20mm Lock Radius Screw Bone Cherrie - S00 - [id number] Implanted:Qty: 1 on 09/29/2018 by Barrett Bello MD at [facility] Screw Left: Wrist [employer] A-5750.20/ Explanted Type Area Ammunition Assembly Laborer Device Identifier Shelf Expiration Date Model / Serial / Lot [employer] A-5700.22/12 2.5mm 24mm Hexadrive Wrist Cortical Screw Bone - S00 - [id number] Implanted:Qty: 1 Explanted:Qty: 1 on 09/29/2018 by Barrett Bello MD at [facility] Screw Left: Wrist [employer] A-5700.24/ [employer] [id number] Lanre .45in 9in 1 [employer]car [employer] Wire Fixation - S00 - [id number] Explanted:Qty: 1 on 09/29/2018 by Barrett Bello MD at [facility] Wire Left: Wrist [employer] [id number] S / [employer] [id number] Lanre .062in 9in 1 Trocar Smooth Wire Fixation - S00 - [id number] Explanted:Qty: 1 on 09/29/2018 by Barrett Bello MD at [facility] Wire Left: Wrist [employer] [id number] / Procedures Procedure Name Priority Date/Time Associated Diagnosis Comments POCT HEMOGLOBIN A1C Routine 04/27/2025 2:40 PM CDT Type 2 diabetes mellitus without complication, without long-term current use of insulin (HCC) EGFR Routine 03/15/2025 9:25 AM CDT Nonalcoholic fatty liver disease without nonalcoholic steatohepatitis (VEGA) LIPID PANEL Routine 01/28/2024 4:26 PM MOLDER BENCH Hyperlipidemia, unspecified hyperlipidemia type COLONOSCOPY 08/11/2023 10:52 AM CDT SCREENING MAMMOGRAM BILATERAL W LENCHO Schedule Routine, Read Routine (OP Routine) 11/04/2022 2:07 PM MOLDER BENCH Screening mammogram, encounter for DEXA AXIAL SKELETON BONE DENSITY 1 OR MORE SITES Schedule Routine, Read Routine (OP Routine) 03/10/2022 1:21 PM CDT Fracture of unspecified carpal bone, right wrist, initial encounter for closed fracture SERUM HEPATITIS C AB Routine 06/18/2016 4:10 AM CDT from Last 3 Months or Most Recently Relevant to Health Maintenance Results * POCT hemoglobin A1c (04/27/2025 2:40 PM CDT) Hemoglobin A1C, POC 5.0 4.0 - 5.6 % Capillary blood 04/27/2025 2 :40 PM CDT Gilma Arceo MD POINT OF CARE TEST ORDER CHELLE Final Result * (ABNORMAL) eGFR (03/15/2025 9:25 AM CDT) [...] LAB BLOOD ORDERABLES Final Result AJ [facility] [id number] [facility]. [place] [address] * Lipid panel (01/28/2024 4:26 PM MOLDER BENCH) Cholesterol 146 30 - 199 mg/dL AJ [...] 3 AJ WOODWARD Blood 01/28/2024 4:26 PM MOLDER BENCH 01/28/2024 4:43 PM MOLDER BENCH us Gilma Arceo MD LAB BLOOD ORDERABLES Fin al Result Performing Organization Address City/State/[facility] Phone Number AJ [facility]ROW[facility] [address] [facility]. [place] [address] * COLONOSCOPY (08/11/2023 10:52 AM CDT) Anatomical Region Laterality Modality Other Narrative Procedure Note Jj Hwang MD - 08/11/2023 10:52 AM CDT ENDOSCOPY LAB Patient Name: Marichuy Romano Procedure Date: 08/11/2023 10:52 AM Admit Type: Outpatient Room: [facility] Date of : 1955 Instrument Name: [id number] [...] my nurses in the GI office at [phone] ([phone]) for your final pathology results in7 days. [...] Mammogram Bilateral W Lencho (11/04/2022 2:07 PM MOLDER BENCH) Anatomical Region Laterality Modality Breast Bilateral Mammography Narrative 11/05/2022 1:43 PM MOLDER BENCH Mammogram Technique: Bilateral Digital Breast Tomosynthesis, Bilateral C-view 2D Screening mammogram. Views obtained: bilateral craniocaudal and bilateral mediolateral oblique. Computer Aided Detection was performed. Mammogram Findings: The present examination has been compared to prior imaging studies performed at [facility] on 11/10/2013, 06/30/2016 and 06/13/2019. There are [...] compared to prior imaging studies performed at [facility] on 11/10/2013, 06/30/2016 and 06/13/2019. There are [...] -2.0 is below the expected range for age. A Z-score below the expected range for age in a patient with recent fractures and/or chronic corticosteroid treatment is consistent with a diagnosis of osteoporosis. B) In post menopausal women and males over 50, comparison of the measured bone mineral density with the average value in young normal subjects (the T-score) has been found to be useful in [...] -2.0 is below the expected range for age. A Z-score below the expected range for age in a patient with recent fractures and/or chronic corticosteroid treatment is consistent with a diagnosis of osteoporosis. B) In post menopausal women and males over 50, comparison of the measured bone mineral density with the average value in young normal subjects (the T-score) has been found to be useful in [...] by: Se Baldwin M.D. Cr Franklin MD IMG DXA PROCEDURES Final R esult * Serum Hepatitis C ab (06/18/2016 4:10 AM CDT) HCV ab Negative NEG CDR HISTOR ICAL RESULTS Comment: Interpretive Data Positive results should be confirmed by a molecular method. If positive, a second separately collected sample should be submitted for Hepatitis C Virus (HCV) RNA Detection and Quantitation by Real-Time Reverse Gas Meter Repair Supervisor-PCR (RT-PCR). Current interpretive data was last revised on 2016. Serum 06/18/2016 4:10 AM CDT Narrative CDR HISTORICAL RESULTS - 06/19/2016 8:01 AM CDT Test performed at [facility] [address] [facility],, [place], [place], [facility], [address]. us Toñito Frank MD LAB BLOOD ORDERABLES Final Result CDR HISTORICAL RESULTS from Last 3 Months or Most Recently Relevant to Health Maintenance Insurance [employer] MEDICARE [employer] OPEN ACCESS [employer] [facility] MEDICARE [facility] MEDICARE ADVANTAGE AETNA MEDICARE BY [facility] MEDICARE Address: [facility] [id number] [place] [phone] * Guarantor: A PHASE 3, DOUBLE-BLIND, RANDOMIZED, LONG-TERM, PLACEBO-CONTROLLED, MULTICENTER STUDY EVALUATING THE SAFETY AND EFFICACY OF OBETICHOLIC ACID IN SUBJECTS WITH Account Type Relation to Patient Date of Phone Billing Address Research [employer] MEDICARE Advance Directives For more information, please contact: [phone] * Full Code (Latest Code Status on [...] 8:38 AM 06/27/2019 2:16 PM Care Teams I&C Tech Relationship Specialty Start Date End Date Jonatan Fu DO PCP - General Internal Medicine 04/06/25 Toñito Frank MD Referring Physician Transplant Hepatology 06/16/20
--- OUTSIDE RECORDS SUMMARY | 2025-10-05 10:46 | XMS_ITS | Clinical Summary ---
Author Organization [facility] Address [address] [place] [id number] Care Team Providers Care Subway Car Repairer Name Role Phone Unavailable Primary Care Provider [...] Scan (General) 2018 COVID-19 Vaccine ( - 2024-2 6 season) 2025 Influenza Adult (#1) 2025 RSV Immunization or 60+ Years (1 - 1-dose 75+ series) 2028 Hepatitis A Vaccines Aged Out No long er eligible based on patient's age to complete this topic Meningococcal B Vaccine Aged Out No l onger eligible based on patient's age to complete this topic Meningococcal Vaccine Aged Out No mook cassandra eligible based on patient's age to complete this topic RSV Immunizations Under 20 Months Aged Out No longer eligible based on patient's age to complete this topic
[2025-10-05 10:49] LABS: Hematocrit 40.1 % (37.0-47.0); Hemoglobin 12.9 g/dL (12.0-15.0); Mean Corpuscular HGB Conc 32.2 g/dl (32-36); Mean Corpuscular Hemoglobin 30.3 pg (26-34); Mean Corpuscular Volume 94.1 fl (80-100); Platelet Count Result 195 k/mm3 (150-375); Red Blood Count 4.26 M/mm3 (4.2-5.4); White Blood Count 6.7 K/mm3 (4.5-10.0)
[2025-10-05 11:02] LABS: Albumin Level 4.3 g/dL (3.5-5.1); Anion Gap 8 mmol/L (4-12); Blood Urea Nitrogen 33 mg/dL (7-17); Calcium 9.4 mg/dL (8.4-10.2); Carbon Dioxide 27 mmol/L (22-30); Chloride 105 mmol/L (98-107); Estimated Glomerular Filt Rate 33; Glucose 89 mg/dL (65-110); Potassium 3.9 mmol/L (3.4-5.0); Sodium 140 mmol/L (137-145)
[2025-10-05 11:15] LABS: Parathyroid Intact 51.8 pg/mL (14.5-75.2)
[2025-10-05 11:29] LABS: Total Protein Urine Random 6 mg/dL; Ur Ttl Prot Creatinine Ratio 0.04 mg/mg (0-0.20)
== END 2025-10-05 10:01 | disposition home or self-care (01) ==
LOC: ANHLAB 10:03
PROVIDERS: PCP Internal Medicine; Visit Provider Internal Medicine Nephrology
DX: I12.9 Hypertensive chronic kidney disease with stage 1 through stage 4 chronic kidney disease, or unspecified chronic kidney disease (principal); N18.32 Chronic kidney disease, stage 3b
CPT/HCPCS: 36415; 80069; 82570; 83970; 84156; 85027

== ENCOUNTER 2025-10-09 09:55 | Outpatient (CLI) | payer MEDICARE, SELFPAY ==
--- OUTSIDE RECORDS SUMMARY | 2025-10-09 10:26 | XMS_ITS | Encounter Summary ---
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
--- OUTSIDE RECORDS SUMMARY | 2025-10-09 10:26 | XMS_ITS | Encounter Summary ---
Author Organization 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
--- OUTSIDE RECORDS SUMMARY | 2025-10-09 10:26 | XMS_ITS | Encounter Summary ---
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
--- OUTSIDE RECORDS SUMMARY | 2025-10-09 10:26 | XMS_ITS | Encounter Summary ---
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
--- OUTSIDE RECORDS SUMMARY | 2025-10-09 10:26 | XMS_ITS | Encounter Summary ---
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
--- OUTSIDE RECORDS SUMMARY | 2025-10-09 10:26 | XMS_ITS | Encounter Summary ---
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
--- OUTSIDE RECORDS SUMMARY | 2025-10-09 10:26 | XMS_ITS | Clinical Summary ---
Author Organization [facility] Address [address] [place] [address] Care Team Providers Care Goldsmith Apprentice Name Role Phone Toñito Frank MD Unavailable [phone] Jonatan Fu DO Primary Care Provider [phone] Allergies Active Allergy Reactions Criticality Noted Date [...] mouth daily 3 09/11/20 18 Active multivitamin-C f-oely-kzjtnkq s tablet Active pravastatin (PRAVACHOL) 20 mg tablet Take 1 tablet (20 mg total) by mouth daily 07/07/20 20 Active LORazepam (ATIVAN) 0.5 mg tablet Take 1 tablet (0.5 mg total) by mouth as needed 08/13/20 21 Active omega 9-ixk-krp-fish oil (Fish OiL) 100-160-1,000 mg capsule Take [...] DAY 90 tablet 1 07/31/[address] (PROTONIX) 40 mg EC tablet Take 1 tablet (40 mg total) by mouth daily 90 tablet 3 09/20/20 25 Active buPROPion SR (WELLBUTRIN SR) 150 mg 12 hr tablet TAKE 1 TABLET BY MOUTH TWICE A DAY 180 tablet 10/01/20 25 Active tirzepatide, weight loss, (Zepbound) 7.5 mg/0.5 mL pen injector INJECT 0.5 ML (7.5 MG TOTAL) UNDER THE SKIN EVERY 7 DAYS 6 mL 10/08/[address] (PROTONIX) 40 mg EC tablet Take 1 tablet (40 mg total) by mouth daily 30 tablet 11 10/09/20 24 025 Discontinued buPROPion SR (WELLBUTRIN SR) 150 mg 12 hr tablet TAKE 1 TABLET BY MOUTH TWICE A DAY 180 tablet 04/24/20 25 025 Discontinued tirzepatide, weight loss, (Zepbound) 7.5 mg/0.5 mL pen injector Inject 0.5 mL (7.5 mg total) under the skin every 7 days 2 mL 08/17/[address] (PROTONIX) 40 mg EC tablet TAKE 1 TABLET BY MOUTH EVERY DAY 90 tablet 09/10/20 25 025 Discontinued(Re order) Active Problems Problem Noted Date Diagnosed Date Esophageal dysphagia 09/19/2024 Encounter for colonoscopy due to history of colo dread polyp 06/14/2020 Overview (06/14/2020): Added automatically from request for surgery [id number] Pure hypercholesterolemia 12/14/2019 Encounter for colonoscopy du e to history of adenomatous colonic polyps 05/18/2019 Overview (05/18/2019): Added automatically from request for surgery [id number] Closed fracture of lower end of left radius with routine healing 09/28/2018 Overview (09/28/2018): Added automatically from request for surgery [id number] Essential (primary) hypertension 08/29/2018 Assessment & Plan [...] 06/17/2018 Assessment & Plan (10/03/2023 9:19 PM HOME APPLIANCES MECHANIC): Reviewed calorie restriction based on BMR as [...] phone. Assessment & Plan (02/06/2023 10:10 PM HOME APPLIANCES MECHANIC): Reviewed calorie restriction based on BMR as [...] phone. Assessment & Plan (12/01/2021 4:22 PM HOME APPLIANCES MECHANIC): Reviewed calorie restriction based on BMR as [...] refocus. Assessment & Plan (10/06/2020 2:58 PM HOME APPLIANCES MECHANIC): Reviewed calorie restriction based on BMR as previously detailed. Reviewed recommendation/goal of >/= 150 minutes/week moderate-intensity aerobic exercise. Asked to keep detailed food diary for at least 1 week and bring to next visit and/or continue tracking on phone. Assessment & Plan (02/02/2020 8:30 PM HOME APPLIANCES MECHANIC): Reviewed calorie restriction based on BMR as previously detailed. Reviewed recommendation/goal of >/= 150 minutes/week moderate-intensity aerobic exercise. Assessment & Plan (11/04/2019 10:55 AM HOME APPLIANCES MECHANIC): Reviewed calorie restriction based on BMR as [...] exercise. Assessment & Plan (12/01/2018 1:18 PM HOME APPLIANCES MECHANIC): Reviewed calorie restriction based on BMR as [...] 06/17/2018 Assessment & Plan (10/03/2023 9:23 PM HOME APPLIANCES MECHANIC): Reviewed study labs -- scanned. Assessment & Plan (07/29/2021 10:34 AM CDT): She will forward lab results. Assessment & Plan (11/04/2019 10:56 AM HOME APPLIANCES MECHANIC): Continue low-carb (<150 g/day), low-glycemic diet. Continue metformin. Assessment & Plan (06/21/2019 11:06 PM CDT): Reviewed recent labs. Continue low-carb (<150 g/day), low-glycemic diet. Continue metformin. Assessment & Plan (03/18/2019 3:16 PM CDT): Continue low-carb (<150 g/day), low-glycemic diet. Reviewed importance of adequate protein intake of 1-1.2 g/kg IBW/day. Reviewed recent labs from [facility] study -- scanned. Assessment & Plan (12/01/2018 1:21 PM HOME APPLIANCES MECHANIC): Continue low-carb (<150 g/day), low-glycemic diet. Continue [...] 06/17/2018 Assessment & Plan (10/03/2023 9:22 PM HOME APPLIANCES MECHANIC): Obesity is improving. Plan: Diet interventions: as [...] Other: Assessment & Plan (02/06/2023 10:16 PM HOME APPLIANCES MECHANIC): Obesity is worse recently, but overall remains improved.. Plan: Diet interventions: as noted.., Regular aerobic exercise program discussed. and Medication as prescribed. Assessment & Plan (08/12/2022 1:22 PM CDT): Obesity is improving. Plan: Diet interventions: as noted.., Regular aerobic exercise program discussed. and medications as prescribed. Assessment & Plan (12/01/2021 4:27 PM HOME APPLIANCES MECHANIC): Obesity is improving with treatment. Diet interventions: [...] ordered. Assessment & Plan (10/06/2020 3:02 PM HOME APPLIANCES MECHANIC): Obesity is worsening. Recommended counseling. Diet interventions: as noted. Regular aerobic exercise program discussed. Pharmacotherapy as ordered. Discussed options and will add naltrexone to the bupropion she is already taking. Discussed risks, benefits, alternatives, potential side effects. Assessment & Plan (02/02/2020 8:39 PM HOME APPLIANCES MECHANIC): Obesity is improving with treatment. Behavioral treatment: have recommended counsling. Diet interventions: as noted. Regular aerobic exercise program discussed. Pharmacotherapy as ordered. Assessment & Plan (11/04/2019 10:57 AM HOME APPLIANCES MECHANIC): Obesity is improving with treatment. Diet interventions: [...] ordered. Assessment & Plan (12/01/2018 1:25 PM HOME APPLIANCES MECHANIC): Obesity is improving with treatment. Diet interventions: [...] complication Assessment & Plan (10/03/2023 9:19 PM HOME APPLIANCES MECHANIC): Reviewed most recent labs available. Continue low-carb (<150 g/day), low- glycemic diet. Continue semaglutide. Assessment & Plan (07/07/2023 8:53 AM CDT): Reviewed most recent labs available. Continue low-carb (<150 g/day), low- glycemic diet. Continue semaglutide -- 1 mg weekly. Assessment & Plan (02/06/2023 10:21 PM HOME APPLIANCES MECHANIC): Reviewed most recent labs available. Continue low-carb (<150 g/day), low- glycemic diet. Will see if semaglutide is covered. Assessment & Plan (08/12/2022 1:13 PM CDT): She will forward recent labs. Continue current regimen. Assessment & Plan (12/01/2021 4:25 PM HOME APPLIANCES MECHANIC): Continue low-carb (<150 g/day), low-glycemic diet.Continue Trulicity. [...] labs. Assessment & Plan (10/06/2020 2:59 PM HOME APPLIANCES MECHANIC): She will forward recent labs. Continue low-carb (<150 g/day), low-glycemic diet. Assessment & Plan (02/02/2020 8:36 PM HOME APPLIANCES MECHANIC): Check A1c. Irritable bowel syndrome 04/14/2014 Overview [...] Zepbound. Assessment & Plan (12/12/2024 1:29 PM HOME APPLIANCES MECHANIC): Discussed recent approval of Zepbound for AKANKSHA and that this may be an option if she starts to struggle again with appetite or if weight increases. Encounters Date Type Department Care Team Description 09/20/2025 10:45 AM CDT Office Visit [facility] Medicine Gastroenterology [address] [facility] [address] [place] [address] Chanelle Serrato MD Irritable bowel syndrome with constipation (Primary Dx); Gastroesophageal reflux disease with esophagitis without hemorrhage; BMI 35.0-35.9,adult 08/21/2025 Documentation [facility] Neuro Sleep [address] [place] [address] Hanane Talavera RN 08/20/2025 3:30 PM CDT Office Visit [facility] Neuro Sleep [address] [place] [address] Lizabeth Carney MD PhD AKANKSHA (obstructive sleep apnea) (Primary Dx); RLS (restless legs syndrome); Circadian rhythm sleep disorder, delayed sleep phase type; Chronic insomnia 08/17/2025 2:20 PM CDT Office Visit [facility] Metabolic Weight Management [facility] [address] [place] [address] Gilma Arceo MD Weight loss [...] (gastroesophageal reflux disease) Type 2 diabetes mellitus 2015 Hypothyroidism Arthritis Sinusitis Sleep apnea Colon polyp Chronic constipation Chronic diarrhea Liver disease fatty liver Family History Medical History Relation Name Comments Hypertension Brother 1 Family history of hypertension - (Added by Conv) Colon polyps Brother 2 Hypertension Brother 2 Family history of hypertension - (Added by Conv) Sleep apnea Brother 2 Diabetes Brother 3 Family history of diabetes mellitus - (Added by Conv) Diabetes Brother 4 Family history of [...] Family history of hypertension - (Added by RebelMouse Conv) Relation Name Status Comments Brother 1 [...] on file Legal Sex Female 6:43 PM HOME APPLIANCES MECHANIC Gender Identity Not on file Sexual Orientation [...] 03/10/2022 Lipid Panel 01/27/2025 01/28/2024 Covid-19 Vaccine (2024- 6 season) 2025 09/10/2022, 12/02/2021, 02/10/2021, Additional [...] history exists Medical Devices Implanted Type Area Cement Rubber Device Identifier Shelf Expiration Date Model / Serial / Lot [employer] A-4750.61 Aptus Trilock [id number] Hole Left Distal Radius Volar Plate - S00 - [id number] Implanted:Qty: 1 on 09/29/2018 by Barrett Bello MD at [facility] [place] Plate Left: Wrist [employer] A-4750.61 / [employer] A-5700.14/1 2.5mm 14mm Cortical Screw Bone Cherrie - S00 - [id number] Implanted:Qty: 1 on 09/29/2018 by Barrett Bello MD at [facility] Screw Left: Wrist [employer] A-5700.14/1 [employer] A-5700.13/1 Aptus 2.5mm 13mm Hexadrive 7 Wrist Cortical Screw Bone Titanium - S00 - [id number] Implanted:Qty: 1 on 09/29/2018 by Barrett Bello MD at [facility] Screw Left: Wrist [employer] A-5700.13/ [employer] A-5700.16/1 Aptus 2.5mm 16mm Hexadrive 7 Adaptive Wrist Radius Cortical - S00 - [id number] Implanted:Qty: 1 on 09/29/2018 by Barrett Bello MD at [facility] Screw Left: Wrist [employer] A-5700.16/ [employer] A-5750.18/1 Aptus Trilock 2.5mm 18mm Hexadrive 7 Adaptive Wrist Radius - S00 - [id number] Implanted:Qty: 3 on 09/29/2018 by Barrett Bello MD at [facility] Screw Left: Wrist [employer] A-5750.18/1 [employer] A-5750.16/1 2.5mm 16mm Trilock Hexadrive Wrist Radius Screw Bone - S00 - [id number] Implanted:Qty: 2 on 09/29/2018 by Barrett Bello MD at [facility] [place] Screw Left: Wrist [employer] A-5750.16/ [employer] A-5750.20/1 Aptus 2.5mm 20mm Lock Radius Screw Bone Cherrie - S00 - [id number] Implanted:Qty: 1 on 09/29/2018 by Barrett Bello MD at [facility] [place] Screw Left: Wrist [employer] A-5750.20/ Explanted Type Area Cement Rubber Device Identifier Shelf Expiration Date Model / Serial / Lot [employer] A-5700.22/12 2.5mm 24mm Hexadrive Wrist Cortical Screw Bone - S00 - [id number] Implanted:Qty: 1 Explanted:Qty: 1 on 09/29/2018 by Barrett Bello MD at [facility] Screw Left: Wrist [employer] A-5700./ [employer] [id number] Lanre .45in 9in 1 [place] [facility] Wire Fixation - S00 - [id number] Explanted:Qty: 1 on 09/29/2018 by Barrett Bello MD at [facility] Wire Left: Wrist [employer] [id number] / [employer] [id number] Lanre .062in 9in 1 [place] Wire Fixation - S00 - [id number] Explanted:Qty: 1 on 09/29/2018 by Barrett Bello MD at [facility] Wire Left: Wrist [employer] [id number] / Procedures Procedure Name Priority Date/Time Associated Diagnosis Comments POCT HEMOGLOBIN A1C Routine 04/27/2025 2:40 PM CDT Type 2 diabetes mellitus without complication, without long-term current use of insulin (HCC) EGFR Routine 03/15/2025 9:25 AM CDT Nonalcoholic fatty liver disease without nonalcoholic steatohepatitis (VEGA) LIPID PANEL Routine 01/28/2024 4:26 PM HOME APPLIANCES MECHANIC Hyperlipidemia, unspecified hyperlipidemia type COLONOSCOPY 08/11/2023 10:52 AM CDT SCREENING MAMMOGRAM BILATERAL W LENCHO Schedule Routine, Read Routine (OP Routine) 11/04/2022 2:07 PM HOME APPLIANCES MECHANIC Screening mammogram, encounter for DEXA AXIAL SKELETON [...] MD LAB BLOOD ORDERABLES Final Result AJ WOODWARD [id number] [facility]. Department [place] [address] * Lipid panel (01/28/2024 4:26 PM HOME APPLIANCES MECHANIC) Cholesterol 146 30 - 199 mg/dL AJ [...] 3 AJ WOODWARD Blood 01/28/2024 4:26 PM HOME APPLIANCES MECHANIC 01/28/2024 4:43 PM HOME APPLIANCES MECHANIC us Gilma Arceo MD LAB BLOOD ORDERABLES Fin al Result AJ BURROWSCH [id number] [facility]. Department [place] [address] * COLONOSCOPY (08/11/2023 10:52 AM CDT) Anatomical Region Laterality Modality Other Narrative Procedure Note Jj Hwang MD - 08/11/2023 10:52 AM CDT ENDOSCOPY LAB Patient Name: Marichuy Romano Procedure Date: 08/11/2023 10:52 AM Admit Type: Outpatient Room: [facility] Date of : 1955 Instrument [...] my nurses in the GI office at [phone] ([phone]) for your final pathology results in7 days. [...] Mammogram Bilateral W Lencho (11/04/2022 2:07 PM HOME APPLIANCES MECHANIC) Anatomical Region Laterality Modality Breast Bilateral Mammography Narrative 11/05/2022 1:43 PM HOME APPLIANCES MECHANIC Mammogram Technique: Bilateral Digital Breast Tomosynthesis, Bilateral C-view 2D Screening mammogram. Views obtained: bilateral craniocaudal and bilateral mediolateral oblique. Computer Aided Detection was performed. Mammogram Findings: The present examination has been compared to prior imaging studies performed at [facility] on 11/10/2013, 06/30/2016 and 06/13/2019. There are [...] compared to prior imaging studies performed at [facility] on 11/10/2013, 06/30/2016 and 06/13/2019. There are [...] RNA Detection and Quantitation by Real-Time Reverse Carbon Cutter-PCR (RT-PCR). Current interpretive data was last revised on 2016. Serum 06/18/2016 4:10 AM CDT Narrative CDR HISTORICAL RESULTS - 06/19/2016 8:01 AM CDT Test performed at [facility], [address] [facility],, [place], [place], [facility], [address]. Toñito Frank MD LAB BLOOD ORDERABLES Final Result CDR HISTORICAL RESULTS from Last 3 Months or Most Recently Relevant to Health [place] [address] AET MEDICARE [employer] OPEN ACCESS [employer] [facility] MEDICARE [facility] MEDICARE [facility] Address: [address] [address] [place] [address] [place] [address] [employer] MEDICARE * Guarantor: A PHASE 3, DOUBLE-BLIND, RANDOMIZED, LONG-TERM, PLACEBO-CONTROLLED, MULTICENTER STUDY EVALUATING THE SAFETY AND EFFICACY OF OBETICHOLIC ACID IN SUBJECTS WITH Account Type Relation to Patient Date of Phone Billing Address Research [employer] MEDICARE Advance Directives For more information, please contact: [phone] * Full Code (Latest Code Status on [...] 8:38 AM 06/27/2019 2:16 PM Care Teams Goldsmith Apprentice Relationship Specialty Start Date End Date Jonatan Fu DO PCP - General Internal Medicine 04/06/25 Toñito Frank MD Referring Physician Transplant Hepatology 06/16/20
--- OUTSIDE RECORDS SUMMARY | 2025-10-09 10:26 | XMS_ITS | Clinical Summary ---
Author Organization [facility] Address [address] [place] [address] Care Team Providers Care Manufacturing Maintenance Manager Name Role Phone Unavailable Primary Care Provider [...]
--- OUTSIDE RECORDS SUMMARY | 2025-10-09 10:26 | XMS_ITS | Clinical Summary ---
Author Organization [facility] Address [address] [place] [address] Phone Care Team Providers Care Power Plant Operators Supervisor Name Role Phone Cr Franklin DO Primary Care Provider Allergies Active Allergy Reactions Criticality Noted Date [...] Fish Oil-Cholecalcif rossana (FISH OIL + D3) 7840-8677 MG-UNIT capsule 1 daily 0 11/29/2018 Act [...] exists Insurance [employer] MEDICARE Care Teams Power Plant Operators Supervisor Relationship Specialty Start Date End Date Cr Franklin DO [address] [id number] PCP - General Internal Medicine 05/17/19
--- OUTSIDE RECORDS SUMMARY | 2025-10-09 10:26 | XMS_ITS | Encounter Summary ---
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
--- OUTSIDE RECORDS SUMMARY | 2025-10-09 10:26 | XMS_ITS | Clinical Summary ---
Author Organization [facility] Address [address] [place] [address] Care Team Providers Care Crm Marketing Executive Name Role Phone Cr Franklin DO Primary Care Provider [phone] Source Comments [facility],non-owned Affiliates and Associated Physician Practices is amultiple site organization consisting of ambulatory clinics and hospital sitesin [place], [place]. This disclosure is being madepursuant to the Care Everywhere program and may not contain all information available regarding this patient. 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
[2025-10-09 10:40] LABS: Cholesterol 148 mg/dL (0-200); HDL Direct 47 mg/dL; Triglycerides 91 mg/dL (<150)
[2025-10-09 10:56] LABS: Free T4 Free Thyroxine 1.62 ng/dL (0.78-2.19)
[2025-10-09 11:16] LABS: Thyroid Stimulating Hormone 1.120 uIU/mL (0.465-4.680)
[2025-10-09 11:17] LABS: Hemoglobin A1C 5.1 % (<5.7)
== END 2025-10-09 09:56 | disposition home or self-care (01) ==
PROVIDERS: PCP Internal Medicine; Visit Provider Internal Medicine
DX: E78.5 Hyperlipidemia, unspecified (principal); E03.9 Hypothyroidism, unspecified; R73.9 Hyperglycemia, unspecified
CPT/HCPCS: 36415; 80061; 83036; 84439; 84443